=== PATIENT | female | born 1980 ===

== ENCOUNTER 2024-01-24 10:01 | Outpatient (REF) | payer MEDICAID, SELFPAY ==
[2024-01-24 11:57] LABS: MANUAL DIFF FLAG NO
[2024-01-24 12:02] LABS: Basophils Percent Auto 0.6 % (0-2); Eosinophils Percent Auto 0.4 % (0-4); Hematocrit 38.8 % (37.0-47.0); Hemoglobin 12.5 g/dl (12.0-16.0); Imm Gran Abs Auto 0.01 X10*3/uL (0.00-0.03); Imm Gran Pct Auto 0.2 % (0.0-0.4); Lymphocytes Absolute Auto 2.7 X10*3/uL (1.2-4.9); Mean Corpuscular HGB Conc 32.2 g/dl (31.0-35.0); Mean Corpuscular Hemoglobin 26.8 pg (27.0-33.0); Mean Corpuscular Volume 83.3 fL (80.0-98.0); Mean Platelet Volume 11.3 fL (9.4-12.3); Monocytes Absolute Auto 0.5 X10*3/uL (0.1-1.2); Monocytes Percent Auto 10.4 % (2-11); Neutrophils Absolute Auto 1.9 x10*3/uL (2.0-8.3); Neutrophils Percent Auto 36.4 % (45-73); Platelet Count 300 X10*3/uL (160-400); Red Blood Count 4.66 X10*6/uL (4.20-5.50); Red Cell Distribution Width 13.4 % (11.0-16.0); White Blood Count 5.1 X10*3/uL (4.8-10.8)
[2024-01-24 12:14] LABS: Estimated Average Glucose 108 mg/dL; Hemoglobin A1C 114.1552 umol/L; Hemoglobin A1c % 5.4 % (<6.0); Total Hemoglobin (HGBA1C) 3193.6002 umol/L
[2024-01-24 12:36] LABS: Alanine Aminotransferase 11 U/L (0-31); Albumin Level 4.2 g/dL (3.5-5.0); Alkaline Phosphatase 102 U/L (39-117); Anion Gap 9 (12-20); Aspartate Amino Transferase 20 U/L (5-31); Bilirubin Total 0.3 mg/dL (0.0-1.0); Blood Urea Nitrogen 8 mg/dL (9-16); Carbon Dioxide 28 mmol/L (22-29); Chloride 105 mmol/L (96-108); Cholesterol 141 mg/dL (<200); Estimated Glomerular Filt Rate > 60; Glucose Random 87 mg/dL (60-115); HDL Cholesterol 61 mg/dL (>40); LDL Cholesterol Calculated 70 mg/dL (<100); Potassium 4.1 mmol/L (3.3-5.1); Sodium 138 mmol/L (135-145); TSH reflex Free T4 1.07 uIU/mL (0.32-4.0); Total Protein 8.2 g/dL (6.5-8.0); Triglycerides 52 mg/dL (<150)
[2024-01-24 12:54] LABS: Reflex LDLD? No
== END 2024-01-24 10:02 | disposition home or self-care (01) ==
LOC: HO.HHCL 10:01
PROVIDERS: Visit Provider Internal Medicine
DX: I10 Essential (primary) hypertension (principal)
CPT/HCPCS: 36415; 80053; 80061; 83036; 84443; 85025

== ENCOUNTER 2024-04-08 15:01 | Outpatient (REF) | payer MEDICAID, SELFPAY ==
--- NOTE | ~2024-04-08 | MM_ITS ---
EXAMINATION: MM SCREENING DIGITAL BREAST TOMOSYNTHESIS, BILATERAL CLINICAL INFORMATION: Screening. Asymptomatic. COMPARISON: Mammography: Baseline. TECHNIQUE: Digital breast mammography with tomosynthesis is performed in both the craniocaudal and mediolateral oblique views along with computer-aided detection (CAD). FINDINGS: The breasts are heterogeneously dense, which may obscure small masses (ACR BI-RADS breast composition Category c). There are no significant masses, abnormal calcifications, or other abnormalities. MM/MM tomosynthesis screening BI IMPRESSION: No mammographic evidence of malignancy. ASSESSMENT: BI-RADS BI-RADS 1 - Negative RECOMMENDATION: Routine annual mammography screening. 1 year F/U This examination should not preclude the clinical evaluation of a suspicious palpable abnormality. This patient's information was entered into a reminder system with a target due date for their next mammogram. Electronically signed by: Valentine Newman DO 04/11/2024 06:03 AM PAUL
--- OUTSIDE RECORDS SUMMARY | 2024-04-08 17:54 | XMS_ITS | Encounter Summary ---
Author Organization [employer] Address [address] [facility] [address] [place] [address] Care Team Providers Care Supervisor [employer] Name Role Phone Blue Vásquez MD Primary Care Prov ider Reason for Visit * Reason Comments Cough Encounter Details Date Type Department Care Team (Late st Contact Info) Description 04/03/2024 3:00 PM EST Office Visit [facility] [address] [place] [address] [phone] Amee De La Torre MD [address] [place] [address] [phone] Acute upper respiratory infection Social History Tobacco Use Types Packs/Day Years Used Date Smoking Tobacco: Never Smokeless Tobacco: Never Alcohol Use Standard Drinks/Week Comments Never 0 (1 standard drink = 0.6 oz pur e alcohol) Comments Unknown Sex and Gender Information Value Date Recorded Sex Assigned at Female 01/18/2024 10:19 AM EST Legal Sex Female 9:37 AM EST Gender Identity Female 01/18/2024 10:19 AM EST Sexual Orientation Straight 01/18/2024 11 :00 AM EST documented as of this encounter Last Filed Vital Signs Vital Sign Reading Time Taken Comments Blood Pressure 127/83 04/03/2024 2:57 PM EST Pulse 69 04/03/2024 2:57 PM EST Temperature 36.8 ??C (98.2 ??F) 04/03/2024 2:57 PM ES T Respiratory Rate 16 04/03/2024 2:57 PM EST Oxygen Saturation 99% 04/03/2024 2:57 PM EST Inhaled Oxygen Concentration - - Weight 60.3 kg (133 lb) 04/03/2024 2:57 PM EST Height - - Body Mass Index 23.56 03/11/2024 2:33 PM EST documented in this encounter Progress Notes * Amee De La Torre MD - 04/03/2024 3:00 PM EST Subjective Patient ID: Rossi Youssef is a 44 y.o. female with past medical history of hypertension who presents to walk in clinic for evaluation of symptoms of a URI. Symptoms include cough, fever, sick contacts, and headache . She reports her children had been sick and her baby was seen here but swabs were negative. Onset of symptoms was 3 days ago, unchanged since that time. Associated negative sympt oms include sore throat, nausea, and vomiting. Evaluation to date: none. Treatment to date: none. Objective Vitals: 04/03/24 1457 BP: 127/83 BP Location: Right arm Patient Position: Sitting BP Cuff Size: Adult Pulse: 69 Resp: 16 Temp: 98.2 ??F (36.8 ??C) TempSrc: Temporal SpO2: 99% Weight: 133 lb (60.3 kg) Physical Exam Constitutional: Appearance: Normal appearance. HENT: Nose: Congestion and rhinorrhea present. Mouth/Throat: Mouth: Mucous membranes are moist. Pharynx: Oropharynx is clear. No oropharyngeal exudate or posterior oropharyngeal erythema. Cardiovascular: Rate and Rhythm: Normal rate and regular rhythm. Heart sounds: Normal heart sounds. Pulmonary: Effort: Pulmonary effort is normal. Breath sounds: Normal breath sounds. Musculoskeletal: Cervical back: Normal range of motion and neck supple. Lymphadenopathy: Cervical: Cervical adenopathy present. Neurological: General: No focal deficit present. Mental Status: She is alert. Psychiatric: Behavior: Behavior normal. Office Visit on 04/03/2024 Component Date Value Ref Range Status Influenza A 04/03/2024 Negative Negative, Indeterminate Final Influenza B 04/03/2024 Negative Negative, Indeterminate Final Rapid Strep A Screen 04/03/2024 Negative Negative, None Detected Final Rapid COVID Ag 04/03/2024 Negative Final Problem List Items Addressed This Visit Acute upper respiratory infection COVID, Flu and Strep negative. No evidence of respiratory distress. Symptoms mild. No evidence of dehydration. -Prescribed acetaminophen (Tylenol) 325 MG every 8 hrs PRN for pain or fever -Supportive care advised. -Isolation recommendations discussed. Relevant Medications acetaminophen (Tylenol) 325 MG capsule Other Relevant Orders Influenza A (ID NOW Rapid Molecular) (Completed) Influenza B (ID NOW Rapid Molecular) (Completed) POCT rapid strep A manually resulted (Completed) POCT Rapid COVID Ag (Completed) -No evidence of acute disease process. Swabs negative. Suspect viral infection. Symptoms mild. -Will treat with antipyretic. -ER precautions discussed. -Seek medical attention for worsening symptoms. I, Franny Lopez, am serving as a scribe to document services personally performed by Dr. Tapia, based on the patient's response to questions by provider and providers statements to me. documented in this encounter Miscellaneous Notes * Assessment & Plan Note - Franny Lopez - 04/03/2024 3:25 PM ESTAssociated Problem(s): Acute upper respiratory infection COVID, Flu and Strep negative. No evidence of respiratory distress. Symptoms mild. No evidence of dehydration. -Prescribed acetaminophen (Tylenol) 325 MG every 8 hrs PRN for pain or fever -Supportive care advised. -Isolation recommendations discussed. documented in this encounter Plan of Treatment Upcoming Encounters Date Type Department Care Team (Late st Contact Info) Description 06/06/2024 11:00 AM EDT Procedure Visit [facility] [address] [place] [address] Larissa Patricio, MAXIM [address] [place] [address] documented as of this encounter Procedures Procedure Name Priority Date/Time Associated Diagnosis Comments POCT INFLUENZA A (ID NOW RAPID MOLECULAR) Routine 04/03/2024 3:21 PM EST Acute upper respiratory infection POCT INFLUENZA B (ID NOW RAPID MOLECULAR) Routine 04/03/2024 3:20 PM EST Acute upper respiratory infection POCT RAPID COVID ANTIGEN Routine 04/03/2024 3:00 PM EST Acute upper respiratory infection POCT RAPID STREP A Routine 04/03/2024 3: 00 PM EST Acute upper respiratory infection documented in this encounter Results * Influenza A (ID NOW Rapid Molecular) (04/03/2024 3:21 PM EST) [facility] Influenza A Negative Negative, Indeterminate LABS Swab 04/03/2024 3:21 PM EST Result [facility] us Amee De La Torre MD POINT OF CARE TEST ENTER/E DIT ORDERABLES Final Result Performing Organization Address [facility] Co de Phone Number LABS [address] [place] [phone] * Influenza B (ID NOW Rapid Molecular) (04/03/2024 3:20 PM EST) [facility] Influenza B Negative Negative, Indeterminate LABS Swab 04/03/2024 3:20 PM EST Amee De La Torre MD POINT OF CARE TEST ENTER/E DIT ORDERABLES Final Result Performing Organization Address [facility] Co de Phone Number LABS [address] [place] [phone] * POCT Rapid COVID Ag (04/03/2024 3:00 PM EST) [facility] Rapid COVID Ag Negative Swab 04/03/2024 3:00 PM EST us Amee De La Torre MD POINT OF CARE TEST ENTER/E DIT ORDERABLES Final Result * POCT rapid strep A manually resulted (04/03/2024 3:00 PM EST) Rapid Strep A Screen Negative Negative, None Detected Swab 04/03/2024 3:00 PM EST Amee De La Torre MD POINT OF CARE TEST ENTER/E DIT ORDERABLES Final Result documented in this encounter Visit Diagnoses Diagnosis Acute upper respiratory infection Acute upper respiratory infections of unspecified site documented in this encounter Care Teams Supervisor [employer] Relationship Specialty Start Date End Date Blue Vásquez MD [address] [place] [phone] PCP - General Internal Medicine 01/29/24 documented as of this encounter
--- OUTSIDE RECORDS SUMMARY | 2024-04-08 17:54 | XMS_ITS | Encounter Summary ---
Author Organization [employer] Address [address] [facility] [address] [place] [address] Care Team Providers Care Single Needle Tufting Machine Operator Name Role Phone Blue Vásquez MD Primary Care Prov ider Encounter Details Date Type Department Care Team (Latest Contact Info) Description 03/26/2024 Travel Social History Tobacco Use Types Packs/Day Years [...] AM EST documented as of this encounter Plan of Treatment Upcoming Encounters Date Type Department Care Team (Late st Contact Info) Description 06/06/2024 11:00 AM EDT Procedure Visit [facility] [address] [place] [address] Larissa Patricio, [address] [place] [address] documented as of this encounter Visit Diagnoses Not on filedocumented in this encounter Care Teams Single Needle Tufting Machine Operator Relationship Specialty Start Date End Date Blue Vásquez MD [address] [place] [phone] PCP - General Internal Medicine 01/29/24 documented as of this encounter
--- OUTSIDE RECORDS SUMMARY | 2024-04-08 17:54 | XMS_ITS | Encounter Summary ---
Author Organization [employer] Address [address] [facility] [address] [place] [address] Care Team Providers Care Rn Ccu Name Role Phone Blue Vásquez MD Primary Care Prov ider Encounter Details Date Type Department Care Team (Latest Contact Info) Description 03/11/2024 Travel Social History Tobacco Use Types Packs/Day [...] Description 06/06/2024 11:00 AM EDT Procedure Visit [facility] [address] [place] [address] Larissa Patricio, MAXIM [address] [place] [address] documented as of this encounter Visit Diagnoses Not on filedocumented in this encounter Care Teams Rn Ccu Relationship Specialty Start Date End Date Blue Vásquez MD [address] [place] [address] PCP - General Internal Medicine 01/29/24 documented as of this encounter
--- OUTSIDE RECORDS SUMMARY | 2024-04-08 17:54 | XMS_ITS | Clinical Summary ---
Author Organization [employer] Address [address] [facility] [address] [place] [address] Care Team Providers Care Plaster Mechanic Name Role Phone Blue Vásquez MD Primary Care Prov ider Allergies No known active allergies Medications Blood Pressure Monitoring (Blood Pressure Cuff) misc Use daily as prescribed 1 each 01/23/20 24 Active losartan-hydro CHLOROthiazide (Hyzaar) 50-12.5 MG tablet Take 1 tablet by mouth Once per day. 90 tablet 3 03/11/19 25 026 Active acetaminophen (Tylenol) 325 MG capsuleIndicat ions:Acute upper respiratory infection Take 1 capsule (325 mg) by mouth every 8 (eight) hours if needed for moderate pain or fever (fever) for up to 10 days. 30 capsule 04/03/19 25 025 Active losartan-hydro CHLOROthiazide (Hyzaar) 50-12.5 MG tablet Take 1 tablet by mouth Once per day. 90 tablet 3 01/23/20 24 025 Discontinued(Re order (will not trigger notification to Pharmacy)) Active Problems Problem Noted Date Diagnosed Date Acute upper respiratory infection 04/03/2024 Assessment & Plan (04/03/2024 3:35 PM EST): COVID, Flu and Strep negative. No evidence of respiratory distress. Symptoms mild. No evidence of dehydration. -Prescribed acetaminophen (Tylenol) 325 MG every 8 hrs PRN for pain or fever -Supportive care advised. -Isolation recommendations discussed. Encounter for screening mamm ogram for malignant neoplasm of breast 03/11/2024 Assessment & Plan (03/11/2024 2:46 PM EST): Will refer for mammogram Screening for colon cancer 03/11/2024 Pap smear for cervical cancer screening 03/11/19 25 Assessment & Plan (03/11/2024 2:50 PM EST): Will schedule for a pap smear Encounter for medical examination to establish c are 01/29/2024 Assessment & Plan (01/29/2024 2:06 PM EST): No pcp follow up No er visit in the past year Pmhx: HTN Pshx: c sec 2019 All:- Meds: losartan/hydrochlorothiazide HTN (hypertension), benign 01/23/2024 Assessment & Plan (03/11/2024 2:52 PM EST): Controlled, keep low sodium diet and exercise as tolerated, keep bp log target <140/90 Assessment & Plan (01/29/2024 2:10 PM EST): Controlled, yesterday was 114/79/111/82, continue current treatment, keep low sodium diet, exercise as tolerated, keep bp log, follow up in office Assessment & Plan (01/23/2024 5:08 PM EST): Uncontrolled. Start losartan/hctz and fu BP w RN in 2w and w PCP in 1-2m Counseled re low salt diet/increase moderate physical activity. Check home BP BIW and prn CP/DEWITT/ZELAYA Non smoking patient. Order labs RTC earlier prn CP, severe DEWITT, weakness. Advised to use condom at all times, she's aware of emergency contraception, I told her to come [facility] after unprotected intercourse. She should be able to get Depo at her next nurse visit Encounters Date Type Department Care Team Description 04/03/2024 3:00 PM EST Office Visit [facility] [address] [place] [address] Amee De La Torre MD Acute upper respiratory infection 03/26/2024 Travel 03/11/2024 2:15 PM EST Office Visit [facility] [address] [place] [address] Blue Vásquez MD Encounter for screening mammogram for malignant neoplasm of breast (Primary Dx); Screening for colon cancer; Pap smear for cervical cancer screening; HTN (hypertension), benign 03/11/2024 Travel 03/04/2024 Patient Outreach [facility] [address] [place] [address] Blue Vásquez MD Pre-visit Planning ([facility] unable to reach [facility] ) 02/08/2024 Telephone [facility] [address] [place] [address] Blue Vásquez MD No Show 01/29/2024 2:15 PM EST Telemedicine [facility] [address] [place] [address] Blue Vásquez MD Encounter for medical examination to establish care (Primary Dx); HTN (hypertension), benign; Eye exam, routine 01/29/2024 Telephone [facility] [address] [place] [address] Blue Vásquez MD 01/29/2024 Travel 01/26/2024 Telephone [facility] [address] [place] [phone] Melania Batista MD Results 01/24/[address] [address] Amberly Ring, celebrity manager Question 01/23/2024 2:20 PM EST Office Visit [facility] [address] [place] [phone] Melania Batista MD HTN (hypertension), benign (Primary Dx) 01/23/2024 11:15 AM EST Procedure Visit [facility] [address] [place] [phone] Larissa Patricio CNM Family planning counseling (Primary Dx) 01/23/2024 Travel 01/18/2024 Telephone [facility] [address] [place] [phone] Blue Vásquez MD CHW - New Patient Assistance (Per [employer]: Elliot (ID# [id number]), pt states she is in need of a depo shot as she has not had one since she left her country and she has already had 2-3 periods. Pt also reports medical conditions are: Depression, which she is out of medication for, as well as needing a vision referral since she used to go every 2yrs for a check up and her current glasses she has she is experiencing blurry vision with.) from Last 3 Months Family History Medical History Relation Name Comments No Known Problems Father Vision loss Mother Cancer Neg Hx Relation Name Status Comments Father Mother Social History Tobacco Use Types Packs/Day Years Used Date Smoking Tobacco: Never Smokeless Tobacco: Never Tobacco Cessation:Counseling Given: Not Answered Alcohol Use Standard Drinks/Week Comments Never 0 (1 standard drink = 0.6 oz pur e alcohol) Comments Unknown Sex and Gender Information Value Date Recorded Sex Assigned at Female 01/18/2024 10:19 AM EST Legal Sex Female 9:37 AM EST Gender Identity Female 01/18/2024 10:19 AM EST Sexual Orientation Straight 01/18/2024 11 :00 AM EST Last Filed Vital Signs Vital Sign Reading Time Taken Comments Blood Pressure 127/83 04/03/2024 2:57 PM EST Pulse 69 04/03/2024 2:57 PM EST Temperature 36.8 ??C (98.2 ??F) 04/03/2024 2:57 PM ES T Respiratory Rate 16 04/03/2024 2:57 PM EST Oxygen Saturation 99% 04/03/2024 2:57 PM EST Inhaled Oxygen Concentration - - Weight 60.3 kg (133 lb) 04/03/2024 2:57 PM EST Height 160 cm (5' 3 ) 03/11/2024 2:33 PM EST Body Mass Index 23.56 03/11/2024 2:33 PM EST Plan of Treatment Upcoming Encounters Date Type Department Care Team (Late st Contact Info) Description 06/06/2024 11:00 AM EDT Procedure Visit [facility] [address] [place], [place] [phone] Larissa Patricio, MAXIM [address] [place] [address] Health Maintenance Due Date Last Done Comments CT Colonography 1978 Colonoscopy 1978 Colorectal Cancer Screening 1978 Depression Screening 1978 FIT DNA/Cologuard 1978 FIT 1978 FOBT 1978 HIV Screening 1978 SDOH Screening 1978 Sigmoidoscopy 1978 Alcohol/Substance Use Screening 1990 Family Planning (PISQ) 1993 Hepatitis C Screening 02/20/1996 DTaP/Tdap/Td Vaccines (1 - Tdap) 1997 Hepatitis B Vaccines (1 of 3 - 19+ 3-dose series) 1997 Pap Smear 1999 Cervical Cancer Screening 02/20/2008 HPV/Cotest 02/20/2008 Mammogram 2018 COVID-19 Vaccine (1 - 2023-2 5 season) 2023 Influenza Vaccine (#1) 2023 Tobacco Screening 01/28/2025 01/29/2024 Zoster Vaccines (1 of 2) 02/20/2028 Lipid Panel 01/23/2029 01/24/2024 RSV Patients and Pa tients Aged 60 years or older (1 - 1-dose 75+ series) 2053 HIB Vaccines Aged Out No longer eligi ble based on patient's age to complete this topic HPV Vaccines Aged Out No longer eligi ble based on patient's age to complete this topic Hepatitis A Vaccines Aged Out No long er eligible based on patient's age to complete this topic IPV Vaccines Aged Out No longer eligi ble based on patient's age to complete this topic Meningococcal Vaccine Aged Out No vinod ruddy eligible based on patient's age to complete this topic Pneumococcal Vaccine: Pediat rics (0 to 5 Years) and At-Risk Patients (6 to 49) Years) Aged Out No longer elig ible based on patient's age to complete this topic RSV under 20 months Aged Out No longe r eligible based on patient's age to complete this topic Rotavirus Vaccines Aged Out No longer eligible based on patient's age to complete this topic Procedures Procedure Name Priority Date/Time Associated Diagnosis [...] 00 PM EST Acute upper respiratory infection CBC WITH AUTO DIFFERENTIAL Routine 01/24/2024 10:09 AM EST HTN (hypertension), benign HEMOGLOBIN A1C Routine 01/24/2024 10:09 AM EST HTN (hypertension), benign TSH W/REFLEX TO FT4 Routine 01/24/2024 1 0:09 AM EST HTN (hypertension), benign LIPID PANEL WITH REFLEX TO DIRECT LDL Routine 01/24/2024 10:09 AM EST HTN (hypertension), benign COMPREHENSIVE METABOLIC PANEL Routine 01/24/2024 10:09 AM EST HTN (hypertension), benign POCT , URINE Routine 01/23/2024 3:13 PM EST HTN (hypertension), benign POCT , URINE Routine 01/23/2024 11:55 AM EST Family planning counseling from Last 3 Months Results * Influenza A (ID NOW Rapid Molecular) (04/03/2024 3:21 PM EST) Influenza A Negative Negative, Indeterminate [facility] Swab 04/03/2024 3:21 PM EST Amee De La Torre MD POINT OF CARE TEST ENTER/E DIT ORDERABLES Final Result [facility] [address] [place] [phone] * Influenza B (ID NOW Rapid Molecular) (04/03/2024 3:20 PM EST) [facility] Influenza B Negative Negative, Indeterminate [facility] Swab 04/03/2024 3:20 PM EST Result [facility] Amee De La Torre MD POINT OF CARE TEST ENTER/E DIT ORDERABLES Final Result Performing Organization Address [facility]/ZIP Co de Phone Number [facility] [address] [place] [phone] * POCT Rapid COVID Ag (04/03/2024 3:00 PM EST) [facility] Rapid COVID Ag Negative Swab 04/03/2024 3:00 PM EST Result [facility] Amee De La Torre MD POINT OF CARE TEST ENTER/E DIT ORDERABLES Final Result * POCT rapid strep A manually resulted (04/03/2024 3:00 PM EST) [facility] Rapid Strep A Screen Negative Negative, None Detected Swab 04/03/2024 3:00 PM EST Result [facility] Amee De La Torre MD POINT OF CARE TEST ENTER/E DIT ORDERABLES Final Result * TSH with Reflex to Free T4 (01/24/2024 10:09 AM EST) [facility] TSH reflex Free T4 1.07 0.32 - 4.0 uIU/mL [facility] Blood 01/24/2024 10:0 9 AM EST 01/24/2024 11:51 AM EST Melania Batista MD LAB BLOOD ORDERABLES Fin al Result Performing Organization Address City/[facility]/ZIP Co de Phone Number [facility] [address] [place] [phone] * Lipid Panel with Reflex to Direct LDL (01/24/2024 10:09 AM EST) Triglycerides 52 <150 mg/dL [facility] Comment:Desirable Triglyceri de: less than 150 mg/dLBorderline High Triglyceride 150-199 mg/dLHigh Triglyceride: 200-499 mg/dLVery High Triglyceride: greater than or equal to 5OO mg/dL Cholesterol 141 <200 mg/dL [facility] Comment:Desirable Cholestero l: less than 200 mg/dLBorderline High Cholesterol: 200-239 mg/dLHigh Cholesterol: greater than 239 mg/dL LDL Cholesterol Calculated 70 <100 mg/dL [facility] Comment:Desirable LDL: less than 100 mg/dLNear Optimal/Above Optimal LDL: 110- 129 mg/dLBorderline High LDL: 130-159 mg/dLHigh LDL: 160-189 mg/dLVery High LDL: greater than or equal to 190 mg/dL HDL Cholesterol 61 >40 mg/dL [facility] Comment:Desirable HDL: great er than 40 mg/dL Note: This HDL assay may give artificially low results in patients with liver disease. Blood 01/24/2024 10:0 9 AM EST 01/24/2024 11:51 AM EST us Melania Batista MD LAB BLOOD ORDERABLES Fin al Result [facility] [address] [place] [phone] * (ABNORMAL) CBC auto differential (01/24/2024 10:09 AM EST) White Blood Count 5.1 4.8 - 10.8 X10*3/uL [facility] Red Blood Count 4.66 4.20 - 5.50 X10*6/uL [facility] Hemoglobin 12.5 12.0 - 16.0 g/dl [facility] Hematocrit 38.8 37.0 - 47.0 % [facility] Mean Corpuscular Volume 83.3 80.0 - 98.0 fL [facility] Mean Corpuscular Hemoglobin 26.8(L) 27.0 - 33.0 pg [facility] Mean Corpuscular HGB Conc 32.2 31.0 - 35.0 g/dl [facility] Red Cell Distribution Width 13.4 11.0 - 16.0 % [facility] Platelet Count 300 160 - 400 X10*3/uL [facility] Mean Platelet Volume 11.3 9.4 - 12.3 fL [facility] Neutrophils Percent Auto 36.4(L) 45 - 73 % [facility] Imm Gran Pct Auto 0.2 0.0 - 0.4 % [facility] Lymphocytes Percent Auto 52.0(H) 20 - 40 % [facility] Monocytes Percent Auto 10.4 2 - 11 % [facility] Eosinophils Percent Auto 0.4 0 - 4 % [facility] Basophils Percent Auto 0.6 0 - 2 % [facility] NRBC Pct Auto 0.0 0.0 - 0.2 /100WBC [facility] Neutrophils Absolute Auto 1.9(L) 2.0 - 8.3 x10*3/uL [facility] Imm Gran Abs Auto 0.01 0.00 - 0.03 X10*3/uL [facility] Lymphocytes Absolute Auto 2.7 1.2 - 4.9 X10*3/uL [facility] Monocytes Absolute Auto 0.5 0.1 - 1.2 X10*3/uL [facility] Eosinophils Absolute Auto 0.0 0.0 - 0.4 X10*3/uL [facility] Basophils Absolute Auto 0.0 0.0 - 0.2 X10*3/uL [facility] NRBC Abs Auto 0.000 0.0 - 0.012 X10*3/uL [facility] Blood Venous blood specimen / Unknown 01/24/2024 10:09 AM EST 01/24/2024 11:51 AM EST us Melania Batista MD LAB BLOOD ORDERABLES Fin al Result [facility] [address] [place] [phone] * Hemoglobin A1c (01/24/2024 10:09 AM EST) Hemoglobin A1c 5.4 <6.0 % [facility] Comment:Hemoglobin A1C Refer ence Range Adults: 4.8 - 6.0 % Non diabetic: < 6.0 % Goal: < 7.0 %Additional Action Suggested: > 8.0 %Note: Hemoglobin A1c results are invalid for patients with abnormal amounts of HbF. Blood transfusions may impact the HbA1c concentration in the patient sample. Estimated Average Glucose 108 mg/dL [facility] Comment:eAG = Estimated ave rage glucose which is %A1C expressed asaverage glucose, using the formula of the Y8O-KbvwtfwAzlhlhe Glucose study (ADAG), Diabetes Care, Vol.31,#8,Sep. 2007 Blood Venous blood specimen / Unknown 01/24/2024 10:09 AM EST 01/24/2024 11:51 AM EST us Melania Batista MD LAB BLOOD ORDERABLES Fin al Result [facility] [address] [place] [phone] * (ABNORMAL) Comprehensive Metabolic Panel (01/24/2024 10:09 AM EST) Sodium 138 135 - 145 mmol/L [facility] Potassium 4.1 3.3 - 5.1 mmol/L [facility] Comment:Slight Hemolysis.Int erpret result with caution. Chloride 105 96 - 108 mmol/L [facility] Carbon Dioxide 28 22 - 29 mmol/L [facility] Anion Gap 9(L) 12 - 20 [facility] Urea Nitrogen (BUN) 8(L) 9 - 16 mg/dL [facility] Creatinine, Serum 0.69 0.5 - 1.4 mg/dL [facility] Estimated Glomerular Filt Rate >60 [facility] Comment:Chronic Kidney Disea se: Estimated GFR < 60 mL/min/1.68u0Hidkex Kidney Disease: Estimated GFR < 15 mL/min/1.73m2 Glucose 87 60 - 115 mg/dL [facility] Calcium 9.0 8.4 - 10.2 mg/dL [facility] Bilirubin, Total 0.3 0.0 - 1.0 mg/dL [facility] Aspartate Amino Transferase 20 5 - 31 U/L [facility] Comment:Slight Hemolysis.Int erpret result with caution. Alanine Aminotransferase 11 0 - 31 U/L [facility] Total Protein 8.2(H) 6.5 - 8.0 g/dL [facility] Albumin Level 4.2 3.5 - 5.0 g/dL [facility] Alkaline Phosphatase 102 39 - 117 U/L [facility] Blood Venous blood specimen / Unknown 01/24/2024 10:09 AM EST 01/24/2024 11:51 AM EST Melania Batista MD LAB BLOOD ORDERABLES Fin al Result [facility] [address] [place] [phone] * POCT , urine manually resulted (01/23/2024 3:13 PM EST) Only the most recent of2 resultswithin the time period is included. Preg Test, Ur Negative Negative, Indeterminate, None Detected, Invalid, Specimen unsatisfactory for evaluation, Weakly Positive Urine 01/23/2024 3:13 PM EST us Melania Batista MD POINT OF CARE TEST ENTER /EDIT ORDERABLES Final Result from Last 3 Months Insurance [facility] C3 Care Teams Plaster Mechanic Relationship Specialty Start Date End Date Blue Vásquez MD [address] [place] [phone] PCP - General Internal Medicine 01/29/24
--- OUTSIDE RECORDS SUMMARY | 2024-04-08 17:54 | XMS_ITS | Encounter Summary ---
Author Organization [employer] Address [address] [place] [address] [address] [place] [address] Care Team Providers Care Management Aide Name Role Phone Blue Vásquez MD Primary Care Prov ider Reason for Referral * Consultation (Routine) - Authorized Specialty Diagnoses / Procedures Referred By Isamar vance Referred To Contact Gastroenterology Diagnoses Screening for colon cancer Blue Vásquez MD [address] [place] [phone] Phone: tel: fax: Shashi Lazcano MD [address] [place] [phone] Phone: tel: fax: Referral ID Status Reason Start Date Expiration Date Visits Requested Visits Authorized [id number] Authorized Specialty Services Required 03/11/2024 03/11/2025 1 1 * Imaging (Routine) - Closed Specialty Diagnoses / Procedures Referred By Isamar vance Referred To Contact Radiology Diagnoses Encounter for screening mammogram for malignant neoplasm of breast Procedures BI Mammogram Screening Tomosynthesis Bilateral Blue Vásquez MD [address] [place] [phone] Phone: tel: fax: [address] Phone: tel: fax: Referral ID Status Reason Start Date Expiration Date Visits Re quested Visits Authorized [id number] Closed 03/11/2024 03/11/2025 1 1 Encounter Details Date Type Department Care Team (Late st Contact Info) Description 03/11/2024 2:15 PM EST Office Visit [facility] [address] [place] [address] Blue Vásquez MD [address] [place] [address] Encounter for screening mammogram for malignant neoplasm of breast (Primary Dx); Screening for colon cancer; Pap smear for cervical cancer screening; HTN (hypertension), benign Social History Tobacco Use Types Packs/Day Years [...] Sign Reading Time Taken Comments Blood Pressure 135/86 03/11/2024 2:33 PM EST Pulse 86 03/11/2024 2:33 PM EST Temperature 37.1 ??C (98.7 ??F) 03/11/2024 2:33 PM ES T Respiratory Rate 20 03/11/2024 2:33 PM EST Oxygen Saturation - - Inhaled Oxygen Concentration - - Weight 64 kg (141 lb) 03/11/2024 2:33 PM EST Height 160 cm (5' 3 ) 03/11/2024 2:33 PM EST Body Mass Index 24.98 03/11/2024 2:33 PM EST documented in this encounter Progress Notes * Blue Rodriguez MD - 03/11/2024 2:15 PM EST Subjective Patient ID: Rossi Youssef is a 44 y.o. female who presents for No chief complaint on file.. Hypertension This is a chronic problem. Pertinent negatives include no chest pain, headaches, palpitations, peripheral edema or shortness of breath. Review of Systems Constitutional: Negative for fatigue and fever. Respiratory: Negative for shortness of breath. Cardiovascular: Negative for chest pain and palpitations. Neurological: Negative for headaches. Objective Physical Exam Constitutional: Appearance: Normal appearance. Cardiovascular: Rate and Rhythm: Normal rate and regular rhythm. Heart sounds: No murmur heard. Pulmonary: Effort: Pulmonary effort is normal. No respiratory distress. Breath sounds: No stridor. No wheezing or rhonchi. Neurological: General: No focal deficit present. Mental Status: She is alert and oriented to person, place, and time. Psychiatric: Mood and Affect: Mood normal. Behavior: Behavior normal. Assessment/Plan Problem List Items Addressed This Visit HTN (hypertension), benign Controlled, keep low sodium diet and exercise as tolerated, keep bp log target <140/90 Encounter for screening mammogram for malignant neoplasm of breast - Primary Will refer for mammogram Relevant Orders BI Mammogram Screening Tomosynthesis Bilateral Screening for colon cancer Relevant Orders Referral to Gastroenterology Pap smear for cervical cancer screening Will schedule for a pap smear documented in this encounter Miscellaneous Notes * Assessment & Plan Note - Blue Rodriguez MD - 03/11/2024 2:52 PM ESTAssociated Problem(s): HTN (hypertension), benign Controlled, keep low sodium diet and exercise as tolerated, keep bp log target <140/90 * Assessment & Plan Note - Blue Rodriguez MD - 03/11/2024 2:50 PM ESTAssociated Problem(s): Pap smear for cervical cancer screening Will schedule for a pap smear * Assessment & Plan Note - Blue Rodriguez MD - 03/11/2024 2:46 PM ESTAssociated Problem(s): Encounter for screening mammogram for malignant neoplasm of breast Will refer for mammogram documented in this encounter Plan of Treatment Upcoming Encounters Date Type Department Care Team (Late st Contact Info) Description 06/06/2024 11:00 AM EDT Procedure Visit [facility] [address] [place] [address] Larissa Patricio, MAXIM [address] [place] [address] Scheduled Orders Name Type Priority Associated Diagnoses Orde r Schedule BI Mammogram Screening Tomosynthesis Bilateral Imaging Routine Encounter for screening mammogram for malignant neoplasm of breast Expected: 03/11/2024, Expires: 05/09/2025 Scheduled Referrals Name Type Priority Associated Diagnoses Order Schedule Referral to Gastroenterology Outpatient Referral Routine Screening for colon cancer Expected: 03/11/2024 (Approximate), Expires: 03/11/2025 documented as of this encounter Visit Diagnoses Diagnosis Encounter for screening mammogram for malignant neoplasm of breast- Primary Screening for colon cancer Special screening for malignant neoplasms, colon Pap smear for cervical cancer screening Screening for malignant neoplasm of the cervix HTN (hypertension), benign Essential hypertension, benign documented in this encounter Care Teams Management Aide Relationship Specialty Start Date End Date Blue Vásquez MD [address] [place] [address] PCP - General Internal Medicine 01/29/24 documented as of this encounter
== END 2024-04-08 15:02 | disposition home or self-care (01) ==
LOC: HO.MAMMO 15:01
PROVIDERS: PCP Internal Medicine; Visit Provider Internal Medicine
DX: Z12.31 Encounter for screening mammogram for malignant neoplasm of breast (principal)
CPT/HCPCS: 77063; 77067

== ENCOUNTER → 2024-04-08 15:15 | Outpatient (BNV) | payer MEDICAID, SELFPAY | PROVIDERS: PCP Internal Medicine; Visit Provider Internal Medicine | DX: Z12.31 Encounter for screening mammogram for malignant neoplasm of breast (principal) | CPT/HCPCS: 77063; 77067 ==

== ENCOUNTER 2024-11-28 14:11 | Outpatient (REF) | payer MEDICAID, SELFPAY ==
[2024-11-28 16:01] LABS: MANUAL DIFF FLAG NO
[2024-11-28 16:16] LABS: Hematocrit 31.8 % (37.0-47.0); Hemoglobin 10.0 g/dl (12.0-16.0); Imm Gran Abs Auto 0.01 X10*3/uL (0.00-0.03); Imm Gran Pct Auto 0.2 % (0.0-0.4); Lymphocytes Absolute Auto 2.9 X10*3/uL (1.2-4.9); Mean Corpuscular HGB Conc 31.4 g/dl (31.0-35.0); Mean Corpuscular Hemoglobin 24.3 pg (27.0-33.0); Mean Corpuscular Volume 77.4 fL (80.0-98.0); NRBC Abs Auto 0.000 X10*3/uL (0.0-0.012); NRBC Pct Auto 0.0 /100WBC (0.0-0.2); Platelet Count 283 X10*3/uL (160-400); Red Blood Count 4.11 X10*6/uL (4.20-5.50); White Blood Count 5.8 X10*3/uL (4.8-10.8)
[2024-11-28 17:04] LABS: Alanine Aminotransferase 12 U/L (0-31); Albumin Level 4.2 g/dL (3.5-5.0); Alkaline Phosphatase 101 U/L (39-117); Anion Gap 10 (12-20); Aspartate Amino Transferase 24 U/L (5-31); Blood Urea Nitrogen 12 mg/dL (9-16); Calcium 8.8 mg/dL (8.4-10.2); Carbon Dioxide 22 mmol/L (22-29); Chloride 110 mmol/L (96-108); Cholesterol 126 mg/dL (<200); Estimated Glomerular Filt Rate > 60; HDL Cholesterol 52 mg/dL (>40); Potassium 3.3 mmol/L (3.3-5.1); Sodium 139 mmol/L (135-145); Total Protein 7.5 g/dL (6.5-8.0); Triglycerides 48 mg/dL (<150)
--- OUTSIDE RECORDS SUMMARY | 2024-11-28 18:02 | XMS_ITS | Clinical Summary ---
Author Organization [employer] Address [address] [place] [address] Care Team Providers Care Paleology Teacher Name Role Phone Blue Vásquez MD Primary Care Prov ider Allergies No known active allergies Medications Blood Pressure Monitoring (Blood Pressure Cuff) misc Use daily as prescribed 1 each 4 Active losartan-hydroC HLOROthiazide (Hyzaar) 100-25 MG tablet Take 1 tablet by mouth Once per day. 90 tablet 3 5 10/25/19 26 Active Active Problems Problem Noted Date Diagnosed Date [...] HTN (hypertension), benign 01/23/2024 Assessment & Plan (11/20/2024 11:50 AM EDT): Controlled, keep low sodium diet and exercise as tolerated, keep blood pressure log, target <140/90 Assessment & Plan (10/24/2024 2:25 PM EDT): Uncontrolled, she has been off treatment for over 1 month, will renew medication, told it is good for 1 year, follow up in 1 month with bp log, new labs ordered Assessment & Plan (06/05/2024 11:18 AM EDT): Controlled, keep bp log, keep low sodium diet and exercise as tolerated, target <140/90, will order new bmp to check kidney function Assessment & Plan (05/17/2024 8:14 AM EDT): Uncontrolled has been ranging above 140/90, will increase dose of oral antihypertensive, keep low sodium diet and exercise as tolerated, follow up in 1 month Assessment & Plan (03/11/2024 2:52 PM EST): [...] told her to come to [facility] after unprotected intercourse. She should be able to get Depo at her next nurse visit Encounters Date Type Department Care Team Description 11/20/2024 10:30 AM EDT Telemedicine [facility] [address] [place] [address] Blue Vásquez MD HTN (hypertension), benign (Primary Dx); Screening for colon cancer 11/19/2024 Telephone [facility] [address] [place] [address] Blue Vásquez MD chart prep 10/24/2024 2:45 PM EDT Telemedicine [facility] [address] [place] [phone] Blue Vásquez MD HTN (hypertension), benign (Primary Dx) 10/24/2024 Travel 10/23/2024 Telephone [facility] [address] [place] [phone] Blue Vásquez MD chart prep from Last 3 Months Family History Medical History Relation Name Comments No Known Problems Father Vision loss Mother Cancer Neg Hx Relation Name Status Comments Father Mother Social History Tobacco Use Types Packs/Day Years Used Date Smoking Tobacco: Never Smokeless Tobacco: Never Tobacco Cessation:Counseling Given: Not Answered Alcohol Use Standard Drinks/Week Comments Never 0 (1 standard drink = 0.6 oz pur e alcohol) Housing Stability Answer Date Recorded What is your housing situation today? I have sung ross 10/24/[address] you li ve. Do you have problems with any of the following? None of the above 10/24/2024 Food Insecurity Answer Date Recorded Within the past 12 months, y ou worried that your food would run out before you got money to buy more: Never True 10/24/2024 Within the past 12 months,th e food you bought just didn't last and you didn't have enough money to get more: Never True Transportation Answer Date Recorded In the past 12 months, has l ack of transportation kept you from medical appts, meetings, work or from getting things needed for daily living? No 10/24/2024 Utilities Answer Date Recorded In the past 12 months, has t he electric, gas, oil or water company threatened to shut off services in your home? No 10/24/2024 Internet Access Answer Date Recorded Internet Access Q1 Yes 10/24/2024 Internet Access Q2 Not on file 10/24/2024 Comments Unknown Sex and Gender Information Value Date Recorded Sex Assigned at Female 01/18/2024 10:19 AM EST Legal Sex Female 9:37 AM EST Gender Identity Female 01/18/2024 10:19 AM EST Sexual Orientation Straight 01/18/2024 11 :00 AM EST Last Filed Vital Signs Vital Sign Reading Time Taken Comments Blood Pressure 133/84 11/20/2024 10:50 AM EDT Pulse 76 11/20/2024 10:50 AM EDT Temperature 36.8 C (98.2 F) 04/03/2024 2:57 PM EST Respiratory Rate 16 04/03/2024 2:57 PM EST Oxygen Saturation 99% 04/03/2024 2:57 PM EST Inhaled Oxygen Concentration - - Weight 60.3 kg (133 lb) 04/03/2024 2:57 PM EST Height 160 cm (5' 3 ) 03/11/2024 2:33 PM EST Body Mass Index 23.56 03/11/2024 2:33 PM EST Plan of Treatment Health Maintenance Due Date Last Done Comments CT Colonography 1978 Colonoscopy 1978 Colorectal Cancer Screening 1978 Depression Screening 1978 FIT DNA/Cologuard 1978 FIT 1978 FOBT 1978 HIV Screening 1978 Sigmoidoscopy 1978 Alcohol/Substance Use Screening 1990 Family Planning (PISQ) 1993 Hepatitis C Screening 02/20/1996 DTaP/Tdap/Td Vaccines (1 - Tdap) 1997 Hepatitis B Vaccines (1 of 3 - 19+ 3-dose series) 1997 Pap Smear 1999 Cervical Cancer Screening 02/20/2008 HPV/Cotest 02/20/2008 COVID-19 Vaccine ( - 2023-2 5 season) 2024 Influenza Vaccine (#1) 2024 Disability Screening 10/24/2025 10/24/2024 SDOH Screening 10/24/2025 10/24/2024 Tobacco Screening 10/24/2025 10/24/2024 Mammogram 04/08/2026 04/08/2024 Zoster Vaccines (1 of 2) 02/20/2028 Lipid Panel 01/23/2029 11/28/2024, 01/24/2024 RSV Patients and Patients Aged 60 years or older (1 - [...] patient's age to complete this topic Meningococcal B Vaccine Aged Out No l onger eligible based on patient's age to complete this topic Meningococcal Vaccine Aged Out No vinod ruddy eligible based on patient's age to complete this topic Pneumococcal Vaccine: Pediatrics (0 to 5 Years) and At-Risk Patients (6 to 49) Years Aged Out No longer eligible b ased on patient's age to complete this topic RSV under 20 months Aged Out No longe r eligible based on patient's age to complete this topic Rotavirus Vaccines Aged Out No longer eligible based on patient's age to complete this topic Procedures Procedure Name Priority Date/Time Associated Diagnosis Comments CBC WITH AUTO DIFFERENTIAL Routine 11/28/2024 2:15 PM EDT HTN (hypertension), benign TSH W/REFLEX TO FT4 Routine 11/28/2024 2 :15 PM EDT HTN (hypertension), benign LIPID PANEL, STANDARD Routine 11/28/2024 2:15 PM EDT HTN (hypertension), benign COMPREHENSIVE METABOLIC PANEL Routine 11/28/2024 2:15 PM EDT HTN (hypertension), benign BI MAMMOGRAM SCREENING TOMOSYNTHESIS BILATERAL Routine 04/08/2024 3:15 PM EST Encounter for screening mammogram for malignant neoplasm of breast from Last 3 Months or Most Recently Relevant to Health Maintenance Results * TSH W/Reflex to FT4 (11/28/2024 2:15 PM EDT) TSH reflex Free T4 0.52 0.32 - 4.0 uIU/mL [facility] Blood Venous blood specimen / Unknown 11/28/2024 2:15 PM EDT 11/28/2024 3:58 PM EDT us Blue Rodriguez MD LAB BLOOD ORDERABL ES Final Result [facility] [address] [place] [address] [phone] * (ABNORMAL) CBC auto differential (11/28/2024 2:15 PM EDT) Pathologist [facility] [place] White Blood Count 5.8 4.8 - 10.8 X10*3/uL [facility] Red Blood Count 4.11(L) 4.20 - 5.50 X10*6/uL [facility] Hemoglobin 10.0(L) 12.0 - 16.0 g/dl [facility] Hematocrit 31.8(L) 37.0 - 47.0 % [facility] Mean Corpuscular Volume 77.4(L) 80.0 - 98.0 fL [facility] Mean Corpuscular Hemoglobin 24.3(L) 27.0 - 33.0 pg [facility] Mean Corpuscular HGB Conc 31.4 31.0 - 35.0 g/dl [facility] Red Cell Distribution Width 14.6 11.0 - 16.0 % [facility] Platelet Count 283 160 - 400 X10*3/uL [facility] Mean Platelet Volume 11.3 9.4 - 12.3 fL [facility] Neutrophils Percent Auto 42.6(L) 45 - 73 % [facility] Imm Gran Pct Auto 0.2 0.0 - 0.4 % [facility] Lymphocytes Percent Auto 49.3(H) 20 - 40 % [facility] Monocytes Percent Auto 6.9 2 - 11 % [facility] Eosinophils Percent Auto 0.5 0 - 4 % [facility] Basophils Percent Auto 0.5 0 - 2 % [facility] NRBC Pct Auto 0.0 0.0 - 0.2 /100WBC [facility] Neutrophils Absolute Auto 2.5 2.0 - 8.3 x10*3/uL [facility] Imm Gran Abs Auto 0.01 0.00 - 0.03 X10*3/uL [facility] Lymphocytes Absolute Auto 2.9 1.2 - 4.9 X10*3/uL [facility] Monocytes Absolute Auto 0.4 0.1 - 1.2 X10*3/uL [facility] Eosinophils Absolute Auto 0.0 0.0 - 0.4 X10*3/uL [facility] Basophils Absolute Auto 0.0 0.0 - 0.2 X10*3/uL [facility] NRBC Abs Auto 0.000 0.0 - 0.012 X10*3/uL [facility] Blood Venous blood specimen / Unknown 11/28/2024 2:15 PM EDT 11/28/2024 3:58 PM EDT us Blue Rodriguez MD LAB BLOOD ORDERABL ES Final Result [facility] [address] [place] [phone] * Lipid Panel, Standard (11/28/2024 2:15 PM EDT) Triglycerides 48 <150 mg/dL [facility] Comment:Desirable Triglyceri de: less than 150 mg/dLBorderline High Triglyceride 150-199 mg/dLHigh Triglyceride: 200-499 mg/dLVery High Triglyceride: greater than or equal to 5OO mg/dL Cholesterol 126 <200 mg/dL [facility] Comment:Desirable Cholestero l: less than 200 mg/dLBorderline High Cholesterol: 200-239 mg/dLHigh Cholesterol: greater than 239 mg/dL LDL Cholesterol Calculated 65 <100 mg/dL [facility] Comment:Desirable LDL: less than 100 mg/dLNear Optimal/Above Optimal LDL: 110- 129 mg/dLBorderline High LDL: 130-159 mg/dLHigh LDL: 160-189 mg/dLVery High LDL: greater than or equal to 190 mg/dL HDL Cholesterol 52 >40 mg/dL [facility] Comment:Desirable HDL: great er than 40 mg/dL Note: This HDL assay may give artificially low results in patients with liver disease. Blood Venous blood specimen / Unknown 11/28/2024 2:15 PM EDT 11/28/2024 3:58 PM EDT Blue Rodriguez MD LAB BLOOD ORDERABL ES Final Result [facility] [address] [place] [address] [phone] * (ABNORMAL) Comprehensive Metabolic Panel (11/28/2024 2:15 PM EDT) Sodium 139 135 - 145 mmol/L [facility] Potassium 3.3 3.3 - 5.1 mmol/L [facility] Chloride 110(H) 96 - 108 mmol/L [facility] Carbon Dioxide 22 22 - 29 mmol/L [facility] Anion Gap 10(L) 12 - 20 [facility] Urea Nitrogen (BUN) 12 9 - 16 mg/dL [facility] Creatinine, Serum 0.86 0.5 - 1.4 mg/dL [facility] Estimated Glomerular Filt Rate >60 [facility] Comment:Chronic Kidney Disea se: Estimated GFR < 60 mL/min/[id number] Kidney Disease: Estimated GFR < 15 mL/min/1.73m2 Glucose 84 60 - 115 mg/dL [facility] Calcium 8.8 8.4 - 10.2 mg/dL [facility] Bilirubin, Total 0.2 0.0 - 1.0 mg/dL [facility] Aspartate Amino Transferase 24 5 - 31 U/L [facility] Alanine Aminotransferase 12 0 - 31 U/L [facility] Total Protein 7.5 6.5 - 8.0 g/dL [facility] Albumin Level 4.2 3.5 - 5.0 g/dL [facility] Alkaline Phosphatase 101 39 - 117 U/L [facility] Blood Venous blood specimen / Unknown 11/28/2024 2:15 PM EDT 11/28/2024 3:58 PM EDT us Blue Rodriguez MD LAB BLOOD ORDERABL ES Final Result [facility] [address] [place] [address] [phone] * BI Mammogram Screening Tomosynthesis Bilateral (04/08/2024 3:15 PM EST) Anatomical Region Laterality Modality Breast Bilateral Mammography 04/08/2024 3:15 PM EST Narrative 04/11/2024 6:06 AM EST [facility] [address] [place] [address] Mammography Report Signed Patient: Rossi Youssef MR#: [id number] : 1980 Acct:[id number] Age/Sex: 44 / F ADM Date: 04/08/24 Loc: HO.MAMMO Attending Dr: Blue Rodriguez MD Ordering Physician: Blue Vásquez MD Res ults: 1Negative Date of Service: 04/08/24 Follow Up: 1 Year From [facility] Mammogram Procedure(s): MM tomosynthesis screening BI Accession Number(s): [id number] cc: Blue Vásquez MD EXAMINATION: MM SCREENING DIGITAL BREAST TOMOSYNTHESIS, BILATERAL CLINICAL INFORMATION: Screening. Asymptomatic. COMPARISON: Mammography: Baseline. TECHNIQUE: Digital breast mammography with tomosynthesis is performed in both the craniocaudal and mediolateral oblique views along with computer-aided detection (CAD). FINDINGS: The breasts are heterogeneously dense, which may obscure small masses (ACR BI-RADS breast composition Category c). There are no significant masses, abnormal calcifications, or other abnormalities. MM/MM tomosynthesis screening BI IMPRESSION: No mammographic evidence of malignancy. ASSESSMENT: BI-RADS BI-RADS 1 - Negative RECOMMENDATION: Routine annual mammography screening. 1 year F/U This examination should not preclude the clinical evaluation of a suspicious palpable abnormality. This patient's information was entered into a reminder system with a target due date for their next mammogram. Electronically signed by: Valentine Newman DO 04/11/2024 06:03 AM EST Dictated By: Valentine Newman DO Signed By: <Electronically signed by Valentine Newman DO in OV> 04/11/24 0603 DD/ 1515 TD/TT: 04/08/24 1559 Ferryboat Ticket Taker: Procedure Note Donotuseinterpreter, Image - 04/11/2024 [facility] [address] [place] [address] Mammography Report Signed Patient: Ariane Youssef#: [id number] : 1980Acct:[id number] Age/Sex: 44 / FADM Date: 04/08/24 Loc: HO.MAMMO Attending Dr: Blue Rodriguez MD Ordering Physician: Blue Vásquez ults: 1Negative Date of Service: 04/08/24Follow Up: 1 Year From Orig inal Mammogram Procedure(s): MM tomosynthesis screening BI Accession Number(s): [id number] cc: Blue Vásquez MD EXAMINATION: MM SCREENING DIGITAL BREAST TOMOSYNTHESIS, BILATERAL CLINICAL INFORMATION: Screening. Asymptomatic. COMPARISON: Mammography: Baseline. TECHNIQUE: Digital breast mammography with tomosynthesis is performed in both the craniocaudal and mediolateral oblique views along with computer-aided detection (CAD). FINDINGS: The breasts are heterogeneously dense, which may obscure small masses (ACR BI-RADS breast composition Category c). There are no significant masses, abnormal calcifications, or other abnormalities. MM/MM tomosynthesis screening BI IMPRESSION: No mammographic evidence of malignancy. ASSESSMENT: BI-RADS BI-RADS 1 - Negative RECOMMENDATION: Routine annual mammography screening. 1 year F/U This examination should not preclude the clinical evaluation of a suspicious palpable abnormality. This patient's information was entered into a reminder system with a target due date for their next mammogram. Electronically signed by: Valentine Newman DO 04/11/2024 06:03 AM EST Dictated By: Valentine Newman DO Signed By: <Electronically signed by Valentine Newman DO in OV> 04/11/24 0603 DD/ 1515 TD/TT: 04/08/24 1559 Ferryboat Ticket Taker: Blue Rodriguez MD IMG BI PROCEDURES Final Result from Last 3 Months or Most Recently Relevant to Health Maintenance Insurance [facility] C3 Care Teams Paleology Teacher Relationship Specialty Start Date End Date Blue Vásquez MD [address] [place] [phone] PCP - General Internal Medicine 01/29/24
[2024-11-29 04:38] LABS: HIV Num 1 0.06 S/CO (0.00-0.99); ~HepC Num1 0.09 S/CO (0.00-0.79); ~Hepatitis C Antibody Nonreactive (Nonreactive)
== END 2024-11-28 14:12 | disposition home or self-care (01) ==
LOC: HO.HHCL 14:11
PROVIDERS: PCP Internal Medicine; Visit Provider Internal Medicine
DX: Z11.4 Encounter for screening for human immunodeficiency virus [HIV] (principal); Z11.59 Encounter for screening for other viral diseases; I10 Essential (primary) hypertension
CPT/HCPCS: 36415; 80053; 80061; 84443; 85025; 86803; 87389

== ENCOUNTER 2024-12-02 14:49 | Outpatient (REF) | payer MEDICAID, SELFPAY ==
--- OUTSIDE RECORDS SUMMARY | 2024-12-02 14:20 | XMS_ITS | Encounter Summary ---
Author Organization [employer] Address [address] [place] [address] Care Team Providers Care Electrical Solderer Name Role Phone Blue Vásquez MD Primary Care Prov ider Reason for Visit * Reason Comments Fever Headache Encounter Details Date Type Department Care Team (Late st Contact Info) Description 12/02/2024 2:20 PM EDT Office Visit [facility] [address] [place] [address] Erica Chowdary FNP [address] [place] [address] Intractable headache, unspecified chronicity pattern, unspecified headache type (Primary Dx); Anemia, unspecified type Social History Tobacco Use Types Packs/Day Years [...] Sign Reading Time Taken Comments Blood Pressure 127/88 12/02/2024 1:40 PM EDT Pulse 65 12/02/2024 1:40 PM EDT Temperature 36.9 C (98.5 F) 12/02/2024 1:40 PM EDT Respiratory Rate 20 12/02/2024 1:40 PM EDT Oxygen Saturation 98% 12/02/2024 1:40 PM EDT Inhaled Oxygen Concentration - - Weight 60.3 kg (133 lb) 12/02/2024 1:40 PM EDT Height - - Body Mass Index 23.56 03/11/2024 2:33 PM EST documented in this encounter Plan of Treatment Not on file documented as of this encounter Procedures Procedure Name Priority Date/Time Associated Diagnosis Comments VITAMIN B12/FOLATE, SERUM PANEL Routine 12/02/2024 3:00 PM EDT Anemia, unspecified type FERRITIN Routine 12/02/2024 3:00 PM EDT Intractable headache, unspecified chronicity pattern, unspecified headache type POCT INFLUENZA B (ID NOW RAPID MOLECULAR) Routine 12/02/2024 2:27 PM EDT Intractable headache, unspecified chronicity pattern, unspecified headache type POCT INFLUENZA A (ID NOW RAPID MOLECULAR) Routine 12/02/2024 2:27 PM EDT Intractable headache, unspecified chronicity pattern, unspecified headache type POCT COVID-19 AG PLUMMER ID NOW Routine 12/02/2024 2:27 PM EDT Intractable headache, unspecified chronicity pattern, unspecified headache type documented in this encounter Results * Vitamin B12/Folate, Serum Panel (12/02/2024 3:00 PM EDT) Vitamin B12 555 200 - 900 pg/mL [facility] Comment:NORMAL 200-900 PG/ML INDETERMINATE 160-199 PG/ML DEFICIENT < 160 PG/ML Folate 11.4 > or = 4.0 ng/mL [facility] Comment:Reference Values:> o r = 4.0 ng/mL< 4.0 ng/mL suggests folate deficiency Methotrexate, aminopterin and folinic acid(leucovorin) are chemotherapeutic agents whose molecularstructures are similar to folate; therefore, the Architectfolate assay cannot be used for patients using these drugs. Blood Venous blood specimen / Unknown 12/02/2024 3:00 PM EDT 12/02/2024 4:07 PM EDT Erica [facility] LAB BLOOD ORDERABLES Final Res ult Performing Organization Address [facility] Co de Phone Number [facility] [address] [place] [phone] * Ferritin (12/02/2024 3:00 PM EDT) Ferritin 13 10 - 250 ng/mL [facility] Blood Venous blood specimen / Unknown 12/02/2024 3:00 PM EDT 12/02/2024 4:07 PM EDT [facility] LAB BLOOD ORDERABLES Final Res ult Performing Organization Address [facility] Co de Phone Number [facility] [address] [place] [phone] * POCT COVID-19 Ag Plummer ID NOW (12/02/2024 2:27 PM EDT) Pathologist [facility] Coronavirus Antigen PCR Negative Negative, Indeterminate, None Detected, Invalid, Specimen unsatisfactory for evaluation, Weakly Positive, 2+ Swab 12/02/2024 2:27 PM EDT us Erica Radhao PATROL MOTHER POINT OF CARE TEST ENTER/EDIT ORDERABLES Final Result * Influenza A (ID NOW Rapid [facility]) (12/02/2024 2:27 PM EDT) [facility] Influenza A Negative Negative, Indeterminate [facility] Swab 12/02/2024 2:27 PM EDT Erica Okhipo PATROL MOTHER POINT OF CARE TEST ENTER/EDIT ORDERABLES Final Result Performing Organization Address [facility]/ZIP Co de Phone Number [facility] [address] [place] [address] [phone] * Influenza B (ID NOW Rapid [facility]) (12/02/2024 2:27 PM EDT) [facility] Influenza B Negative Negative, Indeterminate [facility] Swab 12/02/2024 2:27 PM EDT Result [facility] Erica Radhao PATROL MOTHER POINT OF CARE TEST ENTER/EDIT ORDERABLES Final Result Performing Organization Address [facility] Co de Phone Number [facility] [address] [place] [phone] documented in this encounter Visit Diagnoses Diagnosis Intractable headache, unspecified chronicity pattern, unspecified headache type- Primary Anemia, unspecified type documented in this encounter Care Teams Electrical Solderer Relationship Specialty Start Date End Date Blue Vásquez MD [address] [place] [phone] PCP - General Internal Medicine 01/29/24 documented as of this encounter
[2024-12-02 16:50] LABS: Ferritin 13 ng/mL (10-250)
[2024-12-02 17:22] LABS: Folate 11.4 ng/mL (> or = 4.0); Vitamin B12 555 pg/mL (200-900)
--- OUTSIDE RECORDS SUMMARY | 2024-12-02 18:17 | XMS_ITS | Clinical Summary ---
Author Organization [employer] Address [address] [place] [address] Care Team Providers Care Store Promoter Name Role Phone Blue Vásquez MD Primary Care Prov ider Allergies No known active allergies Medications Blood Pressure Monitoring (Blood Pressure Cuff) misc Use daily as prescribed 1 each 4 Active losartan-hydroC HLOROthiazide (Hyzaar) 100-25 MG tablet Take 1 tablet by mouth Once per day. 90 tablet 3 5 10/25/19 26 Active acetaminophen (Tylenol Extra Strength) 500 MG tablet Take 2 tablets (1,000 mg) by mouth every 6 (six) hours if needed for mild pain for up to 10 days. 30 tablet 5 12/13/19 25 Active ferrous sulfate (Fe Tabs) 325 (65 Fe) MG EC tablet Take 1 tablet (325 mg) by mouth with breakfast. Do not crush, chew, or split. 90 tablet 3 5 12/03/19 26 Active Active Problems Problem Noted Date [...] Pap smear for cervical cancer screening 03/11/19 Assessment & Plan (03/11/2024 2:50 PM EST): [...] Encounters Date Type Department Care Team Description 12/02/2024 2:20 PM EDT Office Visit [facility] [address] [place] [address] Erica Chowdary, FIELD SUPPORT REP Intractable headache, unspecified chronicity pattern, unspecified headache type (Primary Dx); Anemia, unspecified type 12/02/2024 Travel 11/20/2024 10:30 AM EDT Telemedicine [facility] [address] [place] [address] Blue Vásquez MD HTN (hypertension), benign (Primary Dx); Screening for colon cancer 11/19/2024 Telephone [facility] [address] [place] [address] Blue Váqsuez MD chart prep 10/24/2024 2:45 PM EDT Telemedicine [facility] [address] [place] [address] Blue Vásquez MD HTN (hypertension), benign (Primary Dx) 10/24/2024 Travel 10/23/2024 Telephone [facility] [address] [place] [address] Blue Vásquez MD chart prep from Last [...] (133 lb) 12/02/2024 1:40 PM EDT Height 160 cm (5' 3 ) 03/11/2024 2:33 PM EST Body Mass Index 23.56 03/11/2024 2:33 PM EST Plan of Treatment Health Maintenance Due Date Last Done Comments CT Colonography 1978 Colonoscopy 1978 Colorectal Cancer Screening 1978 Depression Screening 1978 FIT DNA/Cologuard 1978 FIT 1978 FOBT 1978 Sigmoidoscopy 1978 Alcohol/Substance Use Screening 1990 Family Planning (PISQ) 1993 DTaP/Tdap/Td Vaccines (1 - Tdap) 1997 Hepatitis B Vaccines (1 of 3 - 19+ 3-dose series) 1997 Pap Smear 1999 Cervical Cancer Screening 02/20/2008 HPV/Cotest 02/20/2008 COVID-19 Vaccine (1 - 2023-2 5 season) 2024 Influenza Vaccine (#1) 2024 Disability Screening 10/24/2025 10/24/2024 SDOH Screening 10/24/2025 10/24/2024 Tobacco Screening 12/02/2025 12/02/2024 Mammogram 04/08/2026 04/08/2024 Zoster Vaccines (1 of 2) 02/20/2028 Lipid Panel 11/28/2029 11/28/2024, 01/24/2024 RSV Patients and Patients Aged 60 years or older (1 - 1-dose 75+ series) 2053 HIV Screening Completed 11/28/2024 Hepatitis C Screening Completed 11/28/2024 HIB Vaccines Aged Out No longer eligi [...] headache, unspecified chronicity pattern, unspecified headache type HEPATITIS C AB W/REFL TO HCV RNA, QN, PCR Routine 11/28/2024 2:15 PM EDT HTN (hypertension), benign HIV 1/2 ANTIGEN/ANTIBODY, FOURTH GENERATION W/RFL Routine 11/28/2024 2:15 PM EDT HTN (hypertension), benign CBC WITH AUTO DIFFERENTIAL Routine 11/28/2024 2:15 [...] Recently Relevant to Health Maintenance Results * Vitamin B12/Folate, Serum Panel (12/02/2024 3:00 PM EDT) Pathologist [facility] Vitamin B12 555 200 - 900 pg/mL [facility] Comment:NORMAL 200-900 PG/ML INDETERMINATE 160-199 PG/ML DEFICIENT < 160 PG/ML Folate 11.4 > or = 4.0 ng/mL [facility] Comment:Reference Values:> o r = 4.0 ng/mL< 4.0 ng/mL suggests folate deficiency Methotrexate, aminopterin and folinic acid(leucovorin) are chemotherapeutic agents whose molecularstructures are similar to folate; therefore, the Architectfolate assay cannot be used for patients using these drugs. Blood Venous blood specimen / Unknown 12/02/2024 3:00 PM EDT 12/02/2024 4:07 PM EDT [facility] LAB BLOOD ORDERABLES Final Res ult [facility] [address] [place] [phone] * Ferritin (12/02/2024 3:00 PM EDT) [facility] Ferritin 13 10 - 250 ng/mL [facility] Blood Venous blood specimen / Unknown 12/02/2024 3:00 PM EDT 12/02/2024 4:07 PM EDT [facility] LAB BLOOD ORDERABLES Final Res ult [facility] [address] [place] [phone] * Influenza B (ID NOW Rapid Molecular) (12/02/2024 2:27 PM EDT) [facility] Influenza B Negative Negative, Indeterminate [facility] Swab 12/02/2024 2:27 PM EDT us Erica Garciao FIELD SUPPORT REP POINT OF CARE TEST ENTER/EDIT ORDERABLES Final Result Performing Organization Address [facility]/ZIP Co de Phone Number [facility] [address] [place] [phone] * Influenza A (ID NOW Rapid Molecular) (12/02/2024 2:27 PM EDT) Pathologist [facility] Influenza A Negative Negative, Indeterminate [facility] Swab 12/02/2024 2:27 PM EDT Erica Garciao FIELD SUPPORT REP POINT OF CARE TEST ENTER/EDIT ORDERABLES Final Result Performing Organization Address [facility] de Phone Number [facility] [address] [place] [phone] * POCT COVID-19 Ag Plummer ID NOW (12/02/2024 2:27 PM EDT) Pathologist [facility] Coronavirus Antigen PCR Negative Negative, Indeterminate, None Detected, Invalid, Specimen unsatisfactory for evaluation, Weakly Positive, 2+ Swab 12/02/2024 2:27 PM EDT Erica Garciao FIELD SUPPORT REP POINT OF CARE TEST ENTER/EDIT ORDERABLES Final Result * TSH W/Reflex to FT4 (11/28/2024 2:15 PM EDT) Pathologist [facility] TSH reflex Free T4 0.52 0.32 - 4.0 uIU/mL [facility] Blood Venous blood specimen / Unknown 11/28/2024 2:15 PM EDT 11/28/2024 3:58 PM EDT Blue Rodriguez MD LAB BLOOD ORDERABL ES Final Result Performing Organization Address [facility] Co de Phone Number [facility] [address] [place] [phone] * (ABNORMAL) CBC auto differential (11/28/2024 2:15 PM EDT) White Blood Count 5.8 4.8 - 10.8 X10*3/uL [facility] Red Blood Count 4.11(L) 4.20 - 5.50 X10*6/uL [facility] Hemoglobin 10.0(L) 12.0 - 16.0 g/dl [facility] Hematocrit 31.8(L) 37.0 - 47.0 % [facility] Mean Corpuscular Volume 77.4(L) 80.0 - 98.0 fL [facility] Mean Corpuscular Hemoglobin 24.3(L) 27.0 - 33.0 pg [facility] Mean Corpuscular HGB Conc 31.4 31.0 - 35.0 g/dl [facility] Red Cell Distribution Width 14.6 11.0 - 16.0 % [facility] Platelet Count 283 160 - 400 X10*3/uL [facility] Mean Platelet Volume 11.3 9.4 - 12.3 fL [facility] Neutrophils Percent Auto 42.6(L) 45 - 73 % [facility] Imm Gran Pct Auto 0.2 0.0 - 0.4 % [facility] Lymphocytes Percent Auto 49.3(H) 20 - 40 % [facility] Monocytes Percent Auto 6.9 2 - 11 % [facility] Eosinophils Percent Auto 0.5 0 - 4 % [facility] Basophils Percent Auto 0.5 0 - 2 % [facility] NRBC Pct Auto 0.0 0.0 - 0.2 /100WBC [facility] Neutrophils Absolute Auto 2.5 2.0 - 8.3 x10*3/uL [facility] Imm Gran Abs Auto 0.01 0.00 - 0.03 X10*3/uL [facility] Lymphocytes Absolute Auto 2.9 1.2 - 4.9 X10*3/uL [facility] Monocytes Absolute Auto 0.4 0.1 - 1.2 X10*3/uL [facility] Eosinophils Absolute Auto 0.0 0.0 - 0.4 X10*3/uL [facility] Basophils Absolute Auto 0.0 0.0 - 0.2 X10*3/uL [facility] NRBC Abs Auto 0.000 0.0 - 0.012 X10*3/uL [facility] Blood Venous blood specimen / Unknown 11/28/2024 2:15 PM EDT 11/28/2024 3:58 PM EDT Blue Rodriguez MD LAB BLOOD ORDERABL ES Final Result Performing Organization Address [facility]/ZIP Co de Phone Number [facility] [address] [place] [phone] * Hepatitis C Antibody with Reflex to HCV, RNA, Quantitative, Real-Time PCR (11/28/2024 2:15 PM EDT) Hepatitis C Antibody Nonreactive Nonreactive [facility] Comment:Antibodies to HCV no t detected; does not exclude early acuteHCV infection. Blood Venous blood specimen / Unknown 11/28/2024 2:15 PM EDT 11/28/2024 3:58 PM EDT Blue Rodriguez MD LAB BLOOD ORDERABL ES Final Result Performing Organization Address [facility]/ZIP Co de Phone Number [facility] [address] [place] [phone] * HIV-1/2 Antigen and Antibodies, Fourth Generation, with Reflexes (11/28/2024 2:15 PM EDT) HIV AB/AG Nonreactive Nonreactive [facility] Comment:HIV-1 p24 Ag and/or HIV-1/HIV-2 Ab not detected.A test result that is nonreactive does not exclude thepossibility of exposure to or infection with HIV-1 and/orHIV-2. Nonreactive results in this assay for individualswith prior exposure to HIV-1 and/or HIV-2 may be due toantigen and antibody levels that are below the limit ofdetection of this assay.The MoonfryeniB2Brev HIV Ag/Ab Combo assay result andsupplemental assay results should be interpreted inconjunction with the patient's clinical presentation,history and other laboratory results. If the results areinconsistent with clinical evidence, additional testing issuggested to confirm the result. Blood Venous blood specimen / Unknown 11/28/2024 2:15 PM EDT 11/28/2024 3:58 PM EDT us Blue Rodriguez MD LAB BLOOD ORDERABL ES Final Result [facility] [address] [place] [phone] * Lipid Panel, Standard (11/28/2024 2:15 PM EDT) Triglycerides 48 <150 mg/dL [facility] Comment:Desirable Triglyceri de: less than 150 mg/dLBorderline High Triglyceride 150-199 mg/dLHigh Triglyceride: 200-499 mg/dLVery High Triglyceride: greater than or equal to 5OO mg/dL Cholesterol 126 <200 mg/dL [facility] Comment:Desirable Cholestero l: less than 200 mg/dLBorderline High Cholesterol: 200-239 mg/dLHigh Cholesterol: greater than 239 mg/dL LDL Cholesterol Calculated 65 <100 mg/dL [facility] Comment:Desirable LDL: less than 100 mg/dLNear Optimal/Above Optimal LDL: 110- 129 mg/dLBorderline High LDL: 130-159 mg/dLHigh LDL: 160-189 mg/dLVery High LDL: greater than or equal to 190 mg/dL HDL Cholesterol 52 >40 mg/dL [facility] Comment:Desirable HDL: great er than 40 mg/dL Note: This HDL assay may give artificially low results in patients with liver disease. Blood Venous blood specimen / Unknown 11/28/2024 2:15 PM EDT 11/28/2024 3:58 PM EDT us Blue Rodriguez MD LAB BLOOD ORDERABL ES Final Result Performing Organization Address City/[facility]/ZIP Co de Phone Number [facility] [address] [place] [phone] * (ABNORMAL) Comprehensive Metabolic Panel (11/28/2024 2:15 PM EDT) Sodium 139 135 - 145 mmol/L [facility] Potassium 3.3 3.3 - 5.1 mmol/L [facility] Chloride 110(H) 96 - 108 mmol/L [facility] Carbon Dioxide 22 22 - 29 mmol/L [facility] Anion Gap 10(L) 12 - 20 [facility] Urea Nitrogen (BUN) 12 9 - 16 mg/dL [facility] Creatinine, Serum 0.86 0.5 - 1.4 mg/dL [facility] Estimated Glomerular Filt Rate >60 [facility] Comment:Chronic Kidney Disea se: Estimated GFR < 60 mL/min/1.10u6Paokyg Kidney Disease: Estimated GFR < 15 mL/min/1.73m2 Glucose 84 60 - 115 mg/dL [facility] Calcium 8.8 8.4 - 10.2 mg/dL [facility] Bilirubin, Total 0.2 0.0 - 1.0 mg/dL [facility] Aspartate Amino Transferase 24 5 - 31 U/L [facility] Alanine Aminotransferase 12 0 - 31 U/L [facility] Total Protein 7.5 6.5 - 8.0 g/dL [facility] Albumin Level 4.2 3.5 - 5.0 g/dL [facility] Alkaline Phosphatase 101 39 - 117 U/L [facility] Blood Venous blood specimen / Unknown 11/28/2024 2:15 PM EDT 11/28/2024 3:58 PM EDT us Blue Rodriguez MD LAB BLOOD ORDERABL ES Final Result Performing Organization Address City/[facility]/ZIP Co de Phone Number [facility] [address] [place] [phone] * BI Mammogram Screening Tomosynthesis Bilateral (04/08/2024 3:15 PM EST) Anatomical Region Laterality Modality Breast Bilateral Mammography 04/08/2024 3:15 PM EST Narrative 04/11/2024 6:06 AM EST [facility] [address] [place] [address] Mammography Report Signed Patient: Rossi Youssef MR#: [id number] : 1980 Acct:[id number] Age/Sex: 44 / F ADM Date: 04/08/24 Loc: HO.MAMMO Attending Dr: Blue Rodriguez MD Ordering Physician: Blue Vásquez MD Res ults: 1Negative Date of Service: 04/08/24 Follow Up: 1 Year From Orig inal Mammogram Procedure(s): MM tomosynthesis screening BI Accession Number(s): [id number] cc: Blue Vásquez MD EXAMINATION: MM SCREENING [...] OV> 04/11/24 0603 DD/ 1515 TD/TT: 04/08/24 155 Pad Hand: Procedure Note Donotuseinterpreter, Image - 04/11/2024 [place] [facility] [address] [place] [address] Mammography Report Signed Patient: Ariane Youssef#: [id number] : 1980Acct:[id number] Age/Sex: 44 / FADM Date: 04/08/24 Loc: HO.MAMMO Attending Dr: Blue Rodriguez MD Ordering Physician: Blue Vásquez ults: 1Negative Date of Service: 04/08/24Follow Up: 1 Year From Orig inal Mammogram Procedure(s): MM tomosynthesis screening BI Accession Number(s): [id number] cc: Blue Vásquez MD EXAMINATION: MM SCREENING [...] by: Valentine Newman DO 04/11/2024 06:03 AM [facility] Dictated By: Valentine Newman DO Signed By: <Electronically signed by Valentine Newman DO in OV> 04/11/24 0603 DD/ 1515 TD/TT: 04/08/24 1552 Pad Hand: us Blue Rodriguez MD IMG BI PROCEDURES Final Result from Last 3 Months or Most Recently Relevant to Health Maintenance Insurance [facility] C3 Care Teams Store Promoter Relationship Specialty Start Date End Date Blue Vásquez MD [address] [place] [phone] PCP - General Internal Medicine 01/29/24
--- OUTSIDE RECORDS SUMMARY | 2024-12-02 18:17 | XMS_ITS | Encounter Summary ---
Author Organization [employer] Address [address] [place] [address] Care Team Providers Care Will Call Clerk Name Role Phone Blue Vásquez MD Primary Care Prov ider Encounter Details Date Type Department Care Team (Latest Contact Info) Description 12/02/2024 Travel Social History Tobacco Use Types Packs/Day Years Used Date Smoking Tobacco: Never Smokeless Tobacco: Never Alcohol Use Standard Drinks/Week Comments Never 0 (1 standard drink = 0.6 oz pur e alcohol) Housing Stability Answer Date Recorded What is your housing situation today? I have sung cody 10/24/[address] you li [...] as of this encounter Plan of Treatment Not on file documented as of this encounter Visit Diagnoses Not on filedocumented in this encounter Care Teams Will Call Clerk Relationship Specialty Start Date End Date Blue Vásquez MD [address] [place] [phone] PCP - General Internal Medicine 01/29/24 documented as of this encounter
== END 2024-12-02 14:50 | disposition home or self-care (01) ==
LOC: HO.HHCL 14:49
PROVIDERS: PCP Nurse Practitioner Family; Visit Provider Nurse Practitioner Family
DX: D64.9 Anemia, unspecified (principal); R51.9 Headache, unspecified
CPT/HCPCS: 36415; 82607; 82728; 82746

== ENCOUNTER 2024-12-31 10:31 | Outpatient (REF) | payer MEDICAID, SELFPAY ==
[2024-12-31 14:17] LABS: MANUAL DIFF FLAG NO
[2024-12-31 14:33] LABS: Hematocrit 32.5 % (37.0-47.0); Hemoglobin 10.1 g/dl (12.0-16.0); Imm Gran Abs Auto 0.00 X10*3/uL (0.00-0.03); Imm Gran Pct Auto 0.0 % (0.0-0.4); Lymphocytes Absolute Auto 2.5 X10*3/uL (1.2-4.9); Mean Corpuscular HGB Conc 31.1 g/dl (31.0-35.0); Mean Corpuscular Hemoglobin 24.6 pg (27.0-33.0); Mean Corpuscular Volume 79.3 fL (80.0-98.0); NRBC Abs Auto 0.000 X10*3/uL (0.0-0.012); NRBC Pct Auto 0.0 /100WBC (0.0-0.2); Platelet Count 254 X10*3/uL (160-400); Red Blood Count 4.10 X10*6/uL (4.20-5.50); White Blood Count 5.0 X10*3/uL (4.8-10.8)
[2024-12-31 14:36] LABS: INTERNATIONAL NORM RATIO 1.1 (0.9-1.1); Prothrombin Time 12.9 SEC (11.2-13.5)
== END 2024-12-31 10:32 | disposition home or self-care (01) ==
LOC: HO.CHCLDS 10:31
PROVIDERS: Visit Provider Family Medicine
DX: N92.1 Excessive and frequent menstruation with irregular cycle (principal)
CPT/HCPCS: 36415; 84443; 84702; 85025; 85610

== ENCOUNTER 2024-12-31 14:13 | Outpatient (REF) | payer MEDICAID, SELFPAY ==
--- OUTSIDE RECORDS SUMMARY | 2024-12-31 10:00 | XMS_ITS | Encounter Summary ---
Author Organization [employer] Address [address] [place] [address] [address] [place] [address] Care Team Providers Care Associate Professor Of Art History Name Role Phone Blue Vásquez MD Primary Care Prov ider Reason for Referral * Imaging (Routine) - Authorized Specialty Diagnoses / Procedures Referred By Contac t Referred To Contact Radiology Diagnoses Menorrhagia with irregular cycle Procedures Us Pelvis complete Addie Robledo MD [address] [place] [address] Phone: tel: fax: [address] [phone] Phone: tel: fax: Referral ID Status Reason Start Date Expiration Date V isits Requested Visits Authorized [id number] Authorized 12/31/2024 12/31/2025 1 1 * Imaging (Routine) - Authorized Specialty Diagnoses / Procedures Referred By Contac t Referred To Contact Radiology Diagnoses Menorrhagia with irregular cycle Procedures US Pelvis Transvaginal Addie Robledo MD [address] [place] [address] Phone: tel: fax: [address] [phone] Phone: tel: fax: Referral ID Status Reason Start Date Expiration Date V isits Requested Visits Authorized [id number] Authorized 12/31/2024 12/31/2025 1 1 Encounter Details Date Type Department Care Team (Latest Contact Info) Description 12/31/2024 10:00 AM EST Procedure Visit [facility] [address] [place] [address] Addie Robledo MD [address] [place] [address] Pap smear for cervical cancer screening (Primary Dx); Menorrhagia with irregular cycle Social History Tobacco Use Types Packs/Day Years Used Date Smoking Tobacco: Never Smokeless Tobacco: Never Alcohol Use Standard Drinks/Week Comments Never 0 (1 standard drink = 0.6 oz pur e alcohol) Housing Stability Answer Date Recorded What is your housing situation today? I have sungmarilyn ross 10/24/[address] you [...] Sign Reading Time Taken Comments Blood Pressure 136/88 12/31/2024 9:24 AM EST Pulse 76 12/31/2024 9:24 AM EST Temperature 37.1 C (98.7 F) 12/31/2024 9:24 AM EST Respiratory Rate 20 12/31/2024 9:24 AM EST Oxygen Saturation 98% 12/31/2024 9:24 AM EST Inhaled Oxygen Concentration - - Weight 59.7 kg (131 lb 9.6 oz) 12/31/2024 9:24 A M EST Height 160 cm (5' 3 ) 12/31/2024 9:24 AM EST Body Mass Index 23.31 12/31/2024 9:24 AM EST documented in this encounter Miscellaneous Notes * Assessment & Plan Note - Titi Baca NP - 12/31/2024 10:00 AM EST Associated Problem(s): Pap smear for cervical cancer screening She will receive a call regarding the results, repeat in 5 years with normal results. Orders: Pap Smear HPV High Risk with Reflex to Subtypes STI testing add on (NG, CT, Trich) documented in this encounter Plan of Treatment Scheduled Orders Name Type Priority Associated Diagnoses Order Schedule Pap Smear Pathology and Cytology Routine Pap smear for cervical cancer screening Ordered: 12/31/2024 HPV High Risk with Reflex to Subtypes Lab Routine Pap smear for cervical cancer screening Ordered: 12/31/2024 STI testing add on (NG, CT, Trich) Pathology and Cytology Routine Pap smear for cervical cancer screening Ordered: 12/31/2024 US Pelvis Transvaginal Imaging Routine Menorrhagia with irregular cycle Expected: 12/31/2024, Expires: 12/31/2025 Us Pelvis complete Imaging Routine Menorrhagia with irregular cycle Expected: 12/31/2024, Expires: 12/31/2025 documented as of this encounter Procedures Procedure Name Priority Date/Time Associated Diagnosis Comments TSH W/REFLEX TO FT4 Routine 12/31/2024 1 0:34 AM EST Menorrhagia with irregular cycle CBC WITH AUTO DIFFERENTIAL Routine 12/31/2024 10:34 AM EST Menorrhagia with irregular cycle PROTHROMBIN TIME-INR Routine 12/31/2024 10:34 AM EST Menorrhagia with irregular cycle HCG, TOTAL, QN Routine 12/31/2024 10:34 AM EST Menorrhagia with irregular cycle documented in this encounter Results * hCG, Total, Quantitative (12/31/2024 10:34 AM EST) HCG Quantitative <2 mIU/mL [facility] Comment:Weeks post LMP Appro ximate hCG(Last Menstrual Period) Range (mIU/ml)3 - 4 weeks 9 - 1304 - 5 weeks 75 - 2,6005 - 6 weeks 850 - 20,8006 - 7 weeks 4000 - 100,2007 - 12 weeks 11,500 - 289,07545 - 16 weeks 18,300 - 137,99190 - 29 weeks (2nd trimester) 1,400 - 53,17935 - 41 weeks (3rd trimester) 940 - 60,000The You B- hCG assay is used for the early detection ofpregnancy; it cannot be used to diagnose any conditionunrelated to . If a B-hCG level is not supportedby the clinical evidence, results should be confirmed by analternative method (qualitative urine hCG, for example). Blood Venous blood specimen / Unknown 12/31/2024 10:34 AM EST 12/31/2024 2:19 PM EST us Addie Robledo MD LAB BLOOD ORDERABLES Final Re sult [facility] [address] [place] [address] [phone] * Prothrombin Time-INR (12/31/2024 10:34 AM EST) Prothrombin Time 12.9 11.2 - 13.5 SEC [facility] INTERNATIONAL NORM RATIO 1.1 0.9 - 1.1 [facility] Comment:INTERNATIONAL NORMAL IZED RATIO (INR) REFERENCE RANGES Reference RangeFor patients not on anticoagulant therapy: 0.9 - 1.1INR ranges for oral anticoagulanttherapy:For prevention and treatment of venous thrombosis and pulmonary embolism: 2.0 - 3.0For acute myocardial infarction with aspirin therapy: 2.0 - 3.0For acute myocardial infarction without aspirin therapy: 3.0 - 4.0For patients with mechanical prosthetic heart valves: 2.5 - 3.5 Blood Venous blood specimen / Unknown 12/31/2024 10:34 AM EST 12/31/2024 2:14 PM EST Addie Robledo MD LAB BLOOD ORDERABLES Final Re sult Performing Organization Address [facility] de Phone Number [facility] [address] [place] [phone] * TSH W/Reflex to FT4 (12/31/2024 10:34 AM EST) TSH reflex Free T4 0.44 0.32 - 4.0 uIU/mL [facility] Blood Venous blood specimen / Unknown 12/31/2024 10:34 AM EST 12/31/2024 2:19 PM EST Addie Robledo MD LAB BLOOD ORDERABLES Final Re sult Performing Organization Address [facility] de Phone Number [facility] [address] [place] [phone] * (ABNORMAL) CBC auto differential (12/31/2024 10:34 AM EST) White Blood Count 5.0 4.8 - 10.8 X10*3/uL [facility] Red Blood Count 4.10(L) 4.20 - 5.50 X10*6/uL [facility] Hemoglobin 10.1(L) 12.0 - 16.0 g/dl [facility] Hematocrit 32.5(L) 37.0 - 47.0 % [facility] Mean Corpuscular Volume 79.3(L) 80.0 - 98.0 fL [facility] Mean Corpuscular Hemoglobin 24.6(L) 27.0 - 33.0 pg [facility] Mean Corpuscular HGB Conc 31.1 31.0 - 35.0 g/dl [facility] Red Cell Distribution Width 15.9 11.0 - 16.0 % [facility] Platelet Count 254 160 - 400 X10*3/uL [facility] Mean Platelet Volume 11.3 9.4 - 12.3 fL [facility] Neutrophils Percent Auto 37.1(L) 45 - 73 % [facility] Imm Gran Pct Auto 0.0 0.0 - 0.4 % [facility] Lymphocytes Percent Auto 49.3(H) 20 - 40 % [facility] Monocytes Percent Auto 12.8(H) 2 - 11 % [facility] Eosinophils Percent Auto 0.2 0 - 4 % [facility] Basophils Percent Auto 0.6 0 - 2 % [facility] NRBC Pct Auto 0.0 0.0 - 0.2 /100WBC [facility] Neutrophils Absolute Auto 1.9(L) 2.0 - 8.3 x10*3/uL [facility] Imm Gran Abs Auto 0.00 0.00 - 0.03 X10*3/uL [facility] Lymphocytes Absolute Auto 2.5 1.2 - 4.9 X10*3/uL [facility] Monocytes Absolute Auto 0.6 0.1 - 1.2 X10*3/uL [facility] Eosinophils Absolute Auto 0.0 0.0 - 0.4 X10*3/uL [facility] Basophils Absolute Auto 0.0 0.0 - 0.2 X10*3/uL [facility] NRBC Abs Auto 0.000 0.0 - 0.012 X10*3/uL [facility] Blood Venous blood specimen / Unknown 12/31/2024 10:34 AM EST 12/31/2024 2:14 PM EST us Addie Robledo MD LAB BLOOD ORDERABLES Final Re sult [facility] [address] [place] [phone] documented in this encounter Visit Diagnoses Diagnosis Pap smear for cervical cancer screening- Primary Screening for malignant neoplasm of the cervix Menorrhagia with irregular cycle documented in this encounter Care Teams Associate Professor Of Art History Relationship Specialty Start Date End Date Blue Vásquez MD [address] [place] [phone] PCP - General Internal Medicine 01/29/24 documented as of this encounter
--- OUTSIDE RECORDS SUMMARY | 2024-12-31 18:07 | XMS_ITS | Encounter Summary ---
Author Organization [employer] Address [address] [facility] [address] [place] [address] Care Team Providers Care Accredited Farm Manager Name Role Phone Blue Vásquez MD Primary Care Prov ider Encounter Details Date Type Department Care Team (Latest Contact Info) Description 12/31/2024 Travel Social History Tobacco Use Types Packs/Day [...] on filedocumented in this encounter Care Teams Accredited Farm Manager Relationship Specialty Start Date End Date Blue Vásquez MD [address] [place] [address] PCP - General Internal Medicine 01/29/24 documented as of this encounter
--- OUTSIDE RECORDS SUMMARY | 2024-12-31 18:07 | XMS_ITS | Clinical Summary ---
Author Organization [employer] Address [address] [facility] [address] [place] [address] Care Team Providers Care Supervisor Color Paste Mixing Name Role Phone Blue Vásquez MD Primary Care Prov ider Allergies No known active allergies Medications Blood Pressure Monitoring (Blood Pressure Cuff) misc Use daily as prescribed 1 each 4 Active losartan-hydroC HLOROthiazide (Hyzaar) 100-25 MG tablet Take 1 tablet by mouth Once per day. 90 tablet 3 5 10/25/19 26 Active ferrous sulfate (Fe Tabs) 325 (65 Fe) MG EC tablet Take 1 tablet (325 mg) by mouth with breakfast. Do not crush, chew, or split. 90 tablet 3 5 12/03/19 26 Active acetaminophen (Tylenol Extra Strength) 500 MG tablet Take 2 tablets (1,000 mg) by mouth every 6 (six) hours if needed for mild pain for up to 10 days. 30 tablet 5 12/13/19 25 Active Problems Problem Noted Date Diagnosed Date Intractable headache 12/05/2024 Anemia 12/05/2024 Acute upper respiratory infection 04/03/2024 Assessment & [...] cervical cancer screening 03/11/19 Assessment & Plan (12/31/2024 11:58 AM EST): She will receive a call regarding the results, repeat in 5 years with normal results. Orders: Pap Smear HPV High Risk with Reflex to Subtypes STI testing add on (NG, CT, Trich) Assessment & Plan (03/11/2024 2:50 PM EST): [...] her to come to [facility] after unprotected intercourse. She should be able to get Depo at her next nurse visit Encounters Date Type Department Care Team Description 12/31/2024 10:00 AM EST Procedure Visit [facility] [address] [place] [address] Addie Robledo MD Pap smear for cervical cancer screening (Primary Dx); Menorrhagia with irregular cycle 12/31/2024 Travel 12/02/2024 2:20 PM EDT Office Visit [facility] [address] [place] [address] Erica Chowdary FNP Intractable headache, unspecified chronicity pattern, unspecified headache type (Primary Dx); Anemia, unspecified type 12/02/2024 Travel 11/20/2024 10:30 AM EDT Telemedicine [facility] [address] [place] [address] Blue Vásquez MD HTN (hypertension), benign (Primary Dx); Screening for colon cancer 11/19/2024 Telephone [facility] [address] [place] [address] Blue Vásquez MD chart prep 10/24/2024 2:45 PM EDT Telemedicine [facility] [address] [place] [address] Blue Vásquez MD HTN (hypertension), benign (Primary Dx) 10/24/2024 Travel 10/23/2024 Telephone [facility] [address] [place] [address] Blue Vásquez MD chart prep from Last [...] Mass Index 23.31 12/31/2024 9:24 AM EST Plan of Treatment Health Maintenance Due [...] 02/20/2008 HPV/Cotest 02/20/2008 COVID-19 Vaccine ( - 2024-2 6 season) 2024 Influenza Vaccine (#1) 2024 Disability [...] Procedure Name Priority Date/Time Associated Diagnosis Comments HCG, TOTAL, QN Routine 12/31/2024 10:34 AM EST Menorrhagia with irregular cycle PROTHROMBIN TIME-INR Routine 12/31/2024 10:34 AM EST Menorrhagia with irregular cycle TSH W/REFLEX TO FT4 Routine 12/31/2024 1 0:34 AM EST Menorrhagia with irregular cycle CBC WITH AUTO DIFFERENTIAL Routine 12/31/2024 10:34 AM EST Menorrhagia with irregular cycle VITAMIN B12/FOLATE, SERUM PANEL Routine 12/02/2024 3:00 [...] Maintenance Results * TSH W/Reflex to FT4 (12/31/2024 10:34 AM EST) Only the most recent of2 resultswithin the time period is included. TSH reflex Free T4 0.44 0.32 - 4.0 uIU/mL [facility] Blood Venous blood specimen / Unknown 12/31/2024 10:34 AM EST 12/31/2024 2:19 PM EST us Addie Robledo MD LAB BLOOD ORDERABLES Final Re sult [facility] [address] [place] [phone] * (ABNORMAL) CBC auto differential (12/31/2024 10:34 AM EST) Only the most recent of2 resultswithin the time period is included. White Blood Count 5.0 4.8 - 10.8 X10*3/uL [facility] Red Blood Count 4.10(L) 4.20 - 5.50 X10*6/uL [facility] Hemoglobin 10.1(L) 12.0 - 16.0 g/dl [facility] Hematocrit 32.5(L) 37.0 - 47.0 % [facility] Mean Corpuscular Volume 79.3(L) 80.0 - 98.0 fL [facility] Mean Corpuscular Hemoglobin 24.6(L) 27.0 - 33.0 pg [facility] Mean Corpuscular HGB Conc 31.1 31.0 - 35.0 g/dl [facility] Red Cell Distribution Width 15.9 11.0 - 16.0 % [facility] Platelet Count 254 160 - 400 X10*3/uL [facility] Mean Platelet Volume 11.3 9.4 - 12.3 fL [facility] Neutrophils Percent Auto 37.1(L) 45 - 73 % [facility] Imm Gran Pct Auto 0.0 0.0 - 0.4 % [facility] Lymphocytes Percent Auto 49.3(H) 20 - 40 % [facility] Monocytes Percent Auto 12.8(H) 2 - 11 % [facility] Eosinophils Percent Auto 0.2 0 - 4 % [facility] Basophils Percent Auto 0.6 0 - 2 % [facility] NRBC Pct Auto 0.0 0.0 - 0.2 /100WBC [facility] Neutrophils Absolute Auto 1.9(L) 2.0 - 8.3 x10*3/uL [facility] Imm Gran Abs Auto 0.00 0.00 - 0.03 X10*3/uL [facility] Lymphocytes Absolute Auto 2.5 1.2 - 4.9 X10*3/uL [facility] Monocytes Absolute Auto 0.6 0.1 - 1.2 X10*3/uL [facility] Eosinophils Absolute Auto 0.0 0.0 - 0.4 X10*3/uL [facility] Basophils Absolute Auto 0.0 0.0 - 0.2 X10*3/uL [facility] NRBC Abs Auto 0.000 0.0 - 0.012 X10*3/uL [facility] Blood Venous blood specimen / Unknown 12/31/2024 10:34 AM EST 12/31/2024 2:14 PM EST Addie Robledo MD LAB BLOOD ORDERABLES Final Re sult Performing Organization Address City/[facility]/ZIP Co de Phone Number [facility] [address] [place] [address] [phone] * Prothrombin Time-INR (12/31/2024 10:34 AM EST) Prothrombin Time 12.9 11.2 - 13.5 SEC [facility] INTERNATIONAL NORM RATIO 1.1 0.9 - 1.1 [facility] Comment:INTERNATIONAL NORMAL IZED RATIO (INR) [...] ORDERABLES Final Re sult Performing Organization Address City/[facility]/ZIP Co de Phone Number [facility] [address] [place] [address] [phone] * hCG, Total, Quantitative (12/31/2024 10:34 AM EST) HCG Quantitative <2 mIU/mL [facility] Comment:Weeks post LMP Appro ximate hCG(Last Menstrual Period) Range (mIU/ml)3 - 4 weeks 9 - 1304 - 5 weeks 75 - 2,6005 - 6 weeks 850 - 20,8006 - 7 weeks 4000 - 100,2007 - 12 weeks 11,500 - 289,71066 - 16 weeks 18,300 - 137,45033 - 29 weeks (2nd trimester) 1,400 - 53,34104 - 41 weeks (3rd trimester) 940 - 60,000The Plummer B- hCG assay is used for the [...] ORDERABLES Final Re sult Performing Organization Address [facility] Co de Phone Number [facility] [address] [place] [phone] * Vitamin B12/Folate, Serum Panel (12/02/2024 3:00 PM EDT) Vitamin B12 555 200 - 900 pg/mL [facility] Comment:NORMAL 200-900 PG/ML INDETERMINATE 160-199 PG/ML DEFICIENT < 160 PG/ML Folate 11.4 > or = 4.0 ng/mL [facility] Comment:Reference Values:> o r = 4.0 ng/mL< 4.0 ng/mL suggests folate deficiency Methotrexate, aminopterin and folinic acid(leucovorin) are chemotherapeutic agents whose molecularstructures are similar to folate; therefore, the Architectfolate assay cannot be used for patients using these drugs. Blood Venous blood specimen / Unknown 12/02/2024 3:00 PM EDT 12/02/2024 4:07 PM EDT us Erica EMANUEL LAB BLOOD ORDERABLES Final Res ult Performing Organization Address [facility]/ZIP Co de Phone Number [facility] [address] [place] [address] [phone] * Ferritin (12/02/2024 3:00 PM EDT) Pathologist [facility] Ferritin 13 10 - 250 ng/mL [facility] Blood Venous blood specimen / Unknown 12/02/2024 3:00 PM EDT 12/02/2024 4:07 PM EDT Erica [employer] LAB BLOOD ORDERABLES Final Res ult Performing Organization Address City/[facility]/ZIP Co de Phone Number [facility] [address] [place] [phone] * Influenza B (ID NOW Rapid Molecular) (12/02/2024 2:27 PM EDT) [facility] Influenza B Negative Negative, Indeterminate [facility] Swab 12/02/2024 2:27 PM EDT Erica [employer] PROFESSIONAL POINT OF CARE TEST ENTER/EDIT ORDERABLES Final Result Performing Organization Address [facility]/ZIP Co de Phone Number [facility] [address] [place] [phone] * Influenza A (ID NOW Rapid Molecular) (12/02/2024 2:27 PM EDT) [facility] Influenza A Negative Negative, Indeterminate [facility] Swab 12/02/2024 2:27 PM EDT Erica [employer] PROFESSIONAL POINT OF CARE TEST ENTER/EDIT ORDERABLES Final Result Performing Organization Address City/[facility] Co de Phone Number [facility] [address] [place] [phone] * POCT COVID-19 Ag Plummer ID NOW (12/02/2024 2:27 PM EDT) [facility] Coronavirus Antigen PCR Negative Negative, Indeterminate, None Detected, Invalid, Specimen unsatisfactory for evaluation, Weakly Positive, 2+ Swab 12/02/2024 2:27 PM EDT Erica Chowdary LEGAL SERVICES PROFESSIONAL POINT OF CARE TEST ENTER/EDIT ORDERABLES Final Result * Hepatitis C Antibody with Reflex to HCV, RNA, Quantitative, Real-Time PCR (11/28/2024 2:15 PM EDT) [facility] Hepatitis C Antibody Nonreactive Nonreactive [facility] Comment:Antibodies to HCV no t detected; does not exclude early acuteHCV infection. Blood Venous blood specimen / Unknown 11/28/2024 2:15 PM EDT 11/28/2024 3:58 PM EDT Blue Rodriguez MD LAB BLOOD ORDERABL ES Final Result [facility] [address] [place] [phone] * HIV-1/2 Antigen and Antibodies, Fourth Generation, with Reflexes (11/28/2024 2:15 PM EDT) [facility] HIV AB/AG Nonreactive Nonreactive [facility] Comment:HIV-1 p24 Ag and/or HIV-1/HIV-2 Ab not detected.A test result that is nonreactive does not exclude thepossibility of exposure to or infection with HIV-1 and/orHIV-2. Nonreactive results in this assay for individualswith prior exposure to HIV-1 and/or HIV-2 may be due toantigen and antibody levels that are below the limit ofdetection of this assay.The [employer] HIV Ag/Ab Combo assay result andsupplemental assay results should be interpreted inconjunction with the patient's clinical presentation,history and other laboratory results. If the results areinconsistent with clinical evidence, additional testing issuggested to confirm the result. Blood Venous blood specimen / Unknown 11/28/2024 2:15 PM EDT 11/28/2024 3:58 PM EDT Blue Rodriguez MD LAB BLOOD ORDERABL ES Final Result Performing Organization Address [facility] de Phone Number [facility] [address] [place] [address] [phone] * Lipid Panel, Standard (11/28/2024 2:15 PM EDT) Triglycerides 48 <150 mg/dL [facility] Comment:Desirable Triglyceri de: less than 150 mg/dLBorderline High Triglyceride 150-199 mg/dLHigh Triglyceride: 200-499 mg/dLVery High Triglyceride: greater than or equal to 5OO mg/dL Cholesterol 126 <200 mg/dL [facility] Comment:Desirable Cholestero l: less than 200 mg/dLBorderline High Cholesterol: 200-239 mg/dLHigh Cholesterol: greater than 239 mg/dL LDL Cholesterol Calculated 65 <100 mg/dL [facility] Comment:Desirable LDL: less than 100 mg/dLNear Optimal/Above Optimal LDL: 110- 129 mg/dLBorderline High LDL: 130-159 mg/dLHigh LDL: 160-189 mg/dLVery High LDL: greater than or equal to 190 mg/dL HDL Cholesterol 52 >40 mg/dL [facility] Comment:Desirable HDL: great er than 40 mg/dL Note: This HDL assay may give artificially low results in patients with liver disease. Blood Venous blood specimen / Unknown 11/28/2024 2:15 PM EDT 11/28/2024 3:58 PM EDT us Blue Rodriguez MD LAB BLOOD ORDERABL ES Final Result Performing Organization Address [facility]/[employer] Co de Phone Number [facility] [address] [place] [phone] * (ABNORMAL) Comprehensive Metabolic Panel (11/28/2024 2:15 PM EDT) Sodium 139 135 - 145 mmol/L [facility] Potassium 3.3 3.3 - 5.1 mmol/L [facility] Chloride 110(H) 96 - 108 mmol/L [facility] Carbon Dioxide 22 22 - 29 mmol/L [facility] Anion Gap 10(L) 12 - 20 [facility] Urea Nitrogen (BUN) 12 9 - 16 mg/dL [facility] Creatinine, Serum 0.86 0.5 - 1.4 mg/dL [facility] Estimated Glomerular Filt Rate >60 [facility] Comment:Chronic Kidney Disea se: Estimated GFR < 60 mL/min/1.39f7Aceepc Kidney Disease: Estimated GFR < 15 mL/min/1.73m2 Glucose 84 60 - 115 mg/dL [facility] Calcium 8.8 8.4 - 10.2 mg/dL [facility] Bilirubin, Total 0.2 0.0 - 1.0 mg/dL [facility] Aspartate Amino Transferase 24 5 - 31 U/L [facility] Alanine Aminotransferase 12 0 - 31 U/L [facility] Total Protein 7.5 6.5 - 8.0 g/dL [facility] Albumin Level 4.2 3.5 - 5.0 g/dL [facility] Alkaline Phosphatase 101 39 - 117 U/L [facility] Blood Venous blood specimen / Unknown 11/28/2024 2:15 PM EDT 11/28/2024 3:58 PM EDT us Blue Rodriguez MD LAB BLOOD ORDERABL ES Final Result [facility] [address] [facility] [place] [address] [phone] * BI Mammogram Screening Tomosynthesis Bilateral (04/08/2024 3:15 PM EST) Anatomical Region Laterality Modality Breast Bilateral Mammography 04/08/2024 3:15 PM EST Narrative 04/11/2024 6:06 AM EST [facility] [address] [place] [address] [place] [address] Mammography Report Signed Patient: Rossi oYussef MR#: [id number] : 1980 Acct:[id number] Age/Sex: 44 / F ADM Date: 04/08/24 Loc: HO.MAMMO Attending Dr: Blue Rodriguez MD Ordering Physician: Blue Vásquez MD Res ults: 1Negative Date of Service: 04/08/24 Follow Up: 1 Year From Orig ina Mammogram Procedure(s): MM tomosynthesis screening BI Accession Number(s): [id number] cc: Blue Vásquez MD EXAMINATION: MM SCREENING [...] by: Valentine Newman DO 04/11/2024 06:03 AM [facility] Dictated By: Valentine Newman DO Signed By: <Electronically signed by Valentine Newman DO in OV> 04/11/24 0603 DD/ 1515 TD/TT: 04/08/24 1559 [employer]: Procedure Note Donotuseinterpreter, Image - 04/11/2024 [facility] [address] [place] [address] Dr. Pierson, [place]ACIE [address] Mammography Report Signed Patient: Dheeraj YoussefR#: [id number] : 1980Acct:[id number] Age/Sex: 44 / FADM Date: 04/08/24 Loc: HO.MAMMO Attending Dr: Blue Rodriguez MD Ordering Physician: Blue Vásquez ults: 1Negative Date of Service: 04/08/24Follow Up: 1 Year From Orig inal Mammogram Procedure(s): MM tomosynthesis screening BI Accession Number(s): [id number] cc: Blue Vásquez MD EXAMINATION: MM SCREENING [...] by: Valentine Newman DO 04/11/2024 06:03 AM [facility] Dictated By: Valentine Newman DO Signed By: <Electronically signed by Valentine Newman DO in OV> 04/11/24 0603 DD/ 1515 TD/TT: 04/08/24 1559 [employer]: Blue Rodriguez MD IMG BI PROCEDURES Final Result from Last 3 Months or Most Recently Relevant to Health Maintenance [place] [address] [address] [place] [address] C3 Care Teams Supervisor Color Paste Mixing Relationship Specialty Start Date End Date Blue Vásquez MD [address] [place] [phone] PCP - General Internal Medicine 01/29/24
[2025-01-03 17:52] LABS: Trichomonas (NAAT) NOT DETECTED (NOT DETECTED)
[2025-01-03 22:28] LABS: C. trachomatis RNA TMA NOT DETECTED (NOT DETECTED); N. gonorrhoeae RNA TMA NOT DETECTED (NOT DETECTED)
== END 2024-12-31 14:14 | disposition home or self-care (01) ==
LOC: HO.LNP 14:13
PROVIDERS: Visit Provider Family Medicine
DX: Z12.4 Encounter for screening for malignant neoplasm of cervix (principal); Z20.2 Contact with and (suspected) exposure to infections with a predominantly sexual mode of transmission; Z11.51 Encounter for screening for human papillomavirus (HPV)
CPT/HCPCS: 87491; 87591; 87626; 87661; 88175